=== PATIENT | male | born 1955 | race Caucasian/White ===

== ENCOUNTER → 2020-07-26 09:27 | Outpatient (CLI) | payer MEDICARE, OTHER, SELFPAY ==
--- NOTE | ~2020-07-26 | CT_ITS ---
EXAMINATION:CT lung screening DATE: 07/26/2020 09:47 INDICATION: Personal history of nicotine dependence. Current smoker with 30 pack year history. TECHNIQUE: Computed tomography (CT) of the chest was performed without intravenous contrast. Automate d exposure control and iterative reconstruction technique were employed. The dose-length product (DLP ) was 106.43 mGy-cm. 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 The lungs demonstrate minimal atelectasis. A c alcified left lung nodule is consistent with old granulomatous disease. No pleural effusion. There ar e changes of right hemithyroidectomy. There is a saber-sheath trachea. The heart size is normal. Ther e are coronary artery calcifications. No pericardial effusion. There is severe thoracic spondylosis. IMPRESSION: 1. Lung-RADS category 1: Negative. Continue annual screening with noncontrast low-dose chest CT in 12 months. Reviewed, dictated and finalized at location A. IMPRESSION: 1. Lung-RADS category 1: Negative. Continue annual screening with noncontrast l ow-dose chest CT in 12 months.
== END ==
PROVIDERS: PCP Family Medicine; Visit Provider Family Medicine
DX: Z87.891 Personal history of nicotine dependence (principal)
CPT/HCPCS: G0297

== ENCOUNTER 2021-02-26 19:37 | Emergency (ER) | payer MEDICARE, OTHER, SELFPAY ==
--- NOTE | 2021-02-26 19:39 | ED.MALEGU ---
HPI - Male Genitourinary General Stated complaint: Abdominal pain, Back pain Time Seen by Provider: 02/26/21 19:43 Source: patient and RN notes reviewed Related Data Home Medications Medication Instructions Recorded Confirmed aspirin 81 mg tablet,delayed 81 mg PO DAILY 10/02/19 07/17/20 release Allergies Allergy/AdvReac Type Severity Reaction Status Date / Time Penicillins Allergy Unknown Skin Verified 12/23/20 11:07 Reaction Review of Systems Review of Systems: Narrative: CONSTITUTIONAL: Denies fever, chills, or sweats. EYES: Denies visual changes, redness, or discharge. ENT: Denies rhinorrhea, congestion, sore throat, or otalgia. CARDIOVASCULAR: Denies chest pain, palpitations, or edema. RESPIRATORY: Denies cough or dyspnea. GASTROINTESTINAL: Denies abdominal pain, nausea, vomiting, or diarrhea. GENITOURINARY: Denies dysuria or hematuria. SKIN: Denies rash or itching. MUSCULOSKELETAL: Denies back pain, joint pain, or myalgia. NEUROLOGIC: Denies headache, numbness, or weakness. All other systems reviewed are negative, except as documented in HPI. PMFSH Surgical History Surgical History H/O hernia repair History of appendectomy History of hip replacement History of vasectomy Hx of tonsillectomy Family History Family History Father Family history of alcoholism Family history of Alzheimer's disease, Onset Age: 75 Family history of malignant neoplasm of urinary bladder Mother Family history of lung cancer Other Depression Social History Social History Smoking status: Current every day smoker (refuses to quit) Alcohol intake: current Comments At the time of my signature, I reviewed and agree with the nursing past medical, surgical, social, and family history. There is no relevant family history pertinent to the patient complaint. Exam Narrative: Exam Narrative: GENERAL: This is a well-nourished, well-developed patient, in no apparent distress. HEAD: normocephalic, atraumatic. EYES: PERRL. Sclera clear/white. Vision is grossly intact. EARS: External ears normal, auditory canals clear and without drainage, TMs normal without perforation. Hearing grossly intact. NOSE: External nose normal with no obvious nasal discharge, nares without redness, no rhinorrhea. THROAT: Mucous membranes moist, posterior pharynx clear. NECK: Neck supple, non-tender without lymphadenopathy, masses or thyromegaly. CARDIOVASCULAR: Regular rate and rhythm without murmurs, gallops, or rubs. RESPIRATORY: Clear to auscultation. Breath sounds equal bilaterally. No wheezes, rales, or rhonchi. GASTROINTESTINAL: Abdomen soft, non-tender, nondistended. Bowel sounds are active. No hepato-splenomegaly, or palpable masses. No guarding. SKIN: warm, intact with no suspicious lesions or rash, good texture and turgor. NEURO: awake, alert, and oriented to person, place and time. There were no obvious focal neurologic abnormalities. EXTREMITIES: No clubbing, cyanosis, or edema. No joint tenderness, effusion, or edema noted. No calf tenderness. Negative Homans sign bilaterally. BACK: Nontender without deformity or crepitance. No flank tenderness. MDM - Male Genitourinary MDM Narrative Medical decision making narrative: Reviewed lab results with the patient. He is aware that urine analysis Differential Diagnosis Differential diagnosis: Likely urinary tract infection, epididymitis and prostatitis Lab Data Attestation: I reviewed the patient's lab results. Critical Care Time Critical Care Time Critical Care Time: No Discharge Plan Discharge Prescriptions: No Action Fluzone Quad [id number] (PF) 60 mcg (15 mcg x 4)/0.5 mL syringe 0.5 ml IM ONCE Qty: 1 RF: 0 aspirin 81 mg tablet,delayed release (DR/EC) 81 mg PO DAILY RF: 0 lisinopril 10 mg tablet
[2021-02-26 19:45] VITALS: BP 138/73; PULSE 100; RESP 16; TEMP 37.3; O2SAT 98
--- NOTE | 2021-02-26 19:50 | ED.ABDPAIN ---
HPI - Abdominal Pain General Chief Complaint: Abdominal Pain Stated Complaint: Abdominal pain, Back pain Time Seen by Provider: 02/26/21 19:43 Source: patient and RN notes reviewed History of Present Illness HPI narrative: Patient is a 65-year-old male who presents the urgent care with complaints of upper abdominal pain wrapping around and through to the back. Patient states that it started last night and he woke up with a low-grade fever. Patient states that it improved this morning and he has been taking Maalox and Prilosec with mild improvement. Patient denies of any history of hiatal hernia, gastric reflux, or cardiac related history. Patient is currently denying of any chest pain or shortness of breath. No other acute complaints. Patient appears slightly anxious otherwise no acute distress noted. Denies of any nausea, vomiting, diarrhea. Patient aware of the plan of care. Some parts of this dictation were generated by voice recognition software and may contain typographical and/or grammatical inaccuracies. Related Data Home Medications Medication Instructions Recorded Confirmed aspirin 81 mg tablet,delayed 81 mg PO DAILY 10/02/19 07/17/20 release Allergies Allergy/AdvReac Type Severity Reaction Status Date / Time Penicillins Allergy Unknown Skin Verified 02/26/21 19:53 Reaction Review of Systems Review of Systems: Narrative: CONSTITUTIONAL: Reports of low-grade fever EYES: Denies visual changes, redness, or discharge. ENT: Denies rhinorrhea, congestion, sore throat, or otalgia. CARDIOVASCULAR: Denies chest pain, palpitations, or edema. RESPIRATORY: Denies cough or dyspnea. GASTROINTESTINAL: Reports of upper abdominal pain without nausea, vomiting or diarrhea GENITOURINARY: Denies dysuria or hematuria. SKIN: Denies rash or itching. MUSCULOSKELETAL: Reports of upper back pain NEUROLOGIC: Denies headache, numbness, or weakness. All other systems reviewed are negative, except as documented in HPI. [facility] Surgical History Surgical History H/O hernia repair History of appendectomy History of hip replacement History of vasectomy Hx of tonsillectomy Family History Family History Father Family history of alcoholism Family history of Alzheimer's disease, Onset Age: 75 Family history of malignant neoplasm of urinary bladder Mother Family history of lung cancer Other Depression Social History Social History Smoking status: Current every day smoker (refuses to quit) Alcohol intake: current Comments At the time of my signature, I reviewed and agree with the nursing past medical, surgical, social, and family history. There is no relevant family history pertinent to the patient complaint. Exam Narrative: Exam Narrative: GENERAL: This is a well-nourished, well-developed patient, in no apparent distress. HEAD: normocephalic, atraumatic. EYES: PERRL. Sclera clear/white. Vision is grossly intact. EARS: External ears normal NOSE: External nose normal with no obvious nasal discharge, nares without redness, no rhinorrhea. THROAT: Mucous membranes moist NECK: Neck supple CARDIOVASCULAR: Regular rate and rhythm without murmurs, gallops, or rubs. RESPIRATORY: Clear to auscultation. Breath sounds equal bilaterally. No wheezes, rales, or rhonchi. GASTROINTESTINAL: Abdomen soft, mild to moderate diffuse upper abdominal tenderness/substernal/epigastric, nondistended. Bowel sounds are hyper active. SKIN: warm, intact with no suspicious lesions or rash, good texture and turgor. NEURO: awake, alert, and oriented to person, place and time. There were no obvious focal neurologic abnormalities. EXTREMITIES: No clubbing, cyanosis, or edema. Course Vital Signs Vital signs: Vital Signs Temperature 99.1 F 02/26/21 19:45 Pulse Rate 10
--- NOTE | 2021-02-26 20:23 | ECG_ITS ---
Measurements Intervals [place] Rate: 94 P: 51 CT: 134 QRS: -37 QRSD: 154 T: 16 QT: 370 QTc: 465 Interpretive Statements SINUS RHYTHM POSSIBLE LEFT ATRIAL ENLARGEMENT LEFT AXIS DEVIATION RIGHT BUNDLE BRANCH BLOCK BASELINE ARTIFACT- I, II, III, AVF ABNORMAL ECG Electronically Signed On 02-27-2021 8:24:52 CDT by Des Worthington D.O.
== END 2021-02-26 20:05 | disposition short-term general hospital (02) ==
PROVIDERS: Emergency Provider Nurse Practitioner Family; PCP Family Medicine
DX: R10.10 Upper abdominal pain, unspecified (principal); F17.200 Nicotine dependence, unspecified, uncomplicated; Z96.649 Presence of unspecified artificial hip joint; Z98.52 Vasectomy status
CPT/HCPCS: 93005; 99213; G0463

== ENCOUNTER 2022-06-30 22:27 | Emergency (ER) | payer MEDICARE, OTHER, SELFPAY ==
--- NOTE | ~2022-06-30 | CT_ITS ---
EXAMINATION: CT abdomen pelvis w con DATE: 07/01/2022 00:57 INDICATION: Epigastric pain TECHNIQUE: Computed tomography (CT) of the abdomen and pelvis was performed with 100 mL Omnipaque-350 intravenous contrast. Automated exposure control and iterative reconstruction technique were employe d. The dose-length product was 499.56 mGy-cm. COMPARISON: None FINDINGS: Elevation of the right hemidiaphragm. Mild bibasilar atelectasis. Heart size is normal. Atherosclerot ic coronary artery calcific location. No pericardial or pleural effusion. Several gallstones within t he normal gallbladder. Liver, spleen, pancreas and bilateral adrenal glands are normal. Bilateral cherry al cysts the largest measuring 2.5 cm in the right kidney. Bilateral nonobstructing nephrolithiasis w ith in 3 mm and 4 mm stones in the right kidney and 3 mm left renal stone. Air-fluid level within a 3 .2 x 2.3 cm duodenal diverticulum located along the posterior margin of head of pancreas and arising from the second portion of the duodenum. There is moderate colonic diverticulosis with a sigmoid pred ominance. There is no adjacent inflammatory change to suggest diverticulitis. A couple small fat-con taining midline ventral hernias. No bowel obstruction. The appendix is not visualized. No pericecal i nflammatory change to suggest acute appendicitis. Bladder is normal. Prostatomegaly. Streak artifact in the lower pelvis resulting from a left total hip arthroplasty. No free intraperitoneal gas or flui d. No pathologically enlarged abdominal or pelvic lymphadenopathy. There is calcified atherosclerosis of the aorta and many of the other arteries. Mild lumbar and severe lower thoracic spondylosis. IMPRESSION: 1. No acute intra-abdominal/pelvic process. 2. Cholelithiasis. 3. Nonobstructing bilateral nephrolithiasis. 4. Moderate diverticulosis. 5. Couple small fat-containing ventral hernias. Reviewed, dictated and finalized at location A.
--- NOTE | ~2022-06-30 | XR_ITS ---
EXAMINATION: XR chest 2V DATE: 06/30/2022 23:13 INDICATION: Upper abdominal pain and dizziness TECHNIQUE: frontal and lateral views of the chest were obtained. COMPARISON: CT abdomen and pelvis dated 07/01/2022 FINDINGS: Mild bibasilar atelectasis. No other airspace opacities, pulmonary edema, pleural effusion or pneumot horax. The cardiomediastinal silhouette is normal. Surgical clips base of the neck suggesting prior t hyroidectomy. Mild S-shaped curvature of the thoracic spine with severe spondylosis. IMPRESSION: 1. Mild bibasilar atelectasis. Reviewed, dictated and finalized at location A.
[2022-06-30 22:36] VITALS: BP 166/91; PULSE 71; RESP 18; TEMP 36.6; O2SAT 96
--- NOTE | 2022-06-30 22:41 | ECG_ITS ---
Measurements Intervals [place] Rate: 71 P: 54 [place]: 146 QRS: -25 QRSD: 165 T: 33 QT: 411 QTc: 448 Interpretive Statements SINUS RHYTHM WITH SINUS ARRHYTHMIA POSSIBLE LEFT ATRIAL ENLARGEMENT [-0.1mV P WAVE IN V1/V2] BORDERLINE LEFT AXIS DEVIATION RIGHT BUNDLE BRANCH BLOCK ABNORMAL ECG COMPARED TO ECG 02/26/2021 19:54:46 SINUS ARRHYTHMIA NOW PRESENT Electronically Signed On 07-01-2022 14:59:36 CDT by Rohan Lyon M.D.
[2022-06-30 22:50] LABS: Basophils Absolute Auto 0.1 K/mm3 (0.0-0.1); Basophils Percent Auto 0.5 % (0.2-1.2); Eosinophils Absolute Auto 0.3 K/mm3 (0-0.3); Eosinophils Percent Auto 2.4 % (0-4.4); Hematocrit 48.5 % (42.0-52.0); Hemoglobin 16.2 g/dL (14.0-18.0); Immature Granulocyte Absolute 0.04 K/mm3 (0.00-0.031); Immature Granulocyte Percent A 0.4 % (0-0.5); Lymphocytes Absolute Auto 2.72 K/mm3 (0.9-3.2); Lymphocytes Percent Auto 24.1 % (18.3-44.2); Mean Corpuscular HGB Conc 33.4 g/dl (32-36); Mean Corpuscular Hemoglobin 30.5 pg (26-34); Mean Corpuscular Volume 91.3 fl (80-100); Mean Platelet Volume 9.1 fl (7.4-10.4); Monocytes Absolute Auto 0.8 K/mm3 (0.1-0.6); Monocytes Percent Auto 7.2 % (2.6-8.5); Neutrophils Absolute Auto 7.4 K/mm3 (1.3-6.7); Neutrophils Percent Auto 65.4 % (45.5-73.1); Platelet Count Result 329 k/mm3 (150-375); Red Blood Count 5.31 M/mm3 (4.6-6.20); Red Cell Distribution Width 14.3 % (11.5-14.5); White Blood Count 11.3 K/mm3 (4.5-10.0)
[2022-06-30 23:00] LABS: Alanine Aminotransferase 24 U/L (6-50); Albumin Level 4.3 g/dL (3.5-5.1); Alkaline Phosphatase 96 U/L (38-126); Anion Gap 8 mmol/L (8-16); Aspartate Amino Transferase 24 U/L (17-59); Bilirubin,Total 0.3 mg/dL (0.2-1.3); Blood Urea Nitrogen 21 mg/dL (9-20); Calcium 8.8 mg/dL (8.4-10.2); Carbon Dioxide 28 mmol/L (22-30); Chloride 104 mmol/L (98-107); Estimated CRCL calculation 68 ml/min; Estimated Glomerular Filt Rate > 60; Glucose 141 mg/dL (65-110); Lipase 120 U/L (23-300); Potassium 3.8 mmol/L (3.4-5.0); Sodium 140 mmol/L (137-145)
[2022-06-30 23:01] LABS: Prothrombin Time 12.9 Seconds (11.1-14.7)
[2022-06-30 23:02] LABS: Partial Thromboplastin Time 27.3 SECONDS (22.3-36.8)
[2022-06-30 23:11] LABS: Troponin I < 0.012 ng/mL (0.000-0.034)
[2022-07-01 00:02] VITALS: BP 178/98; PULSE 68; RESP 28; O2SAT 96
--- NOTE | 2022-07-01 00:05 | ED.ABDPAIN ---
HPI - Abdominal Pain General Chief Complaint: Abdominal Pain <CASSIA Thomason Last Filed: 07/01/22 03:12> Stated Complaint: chest pain <CASSIA Thomason Last Filed: 07/01/22 03:12> Time Seen by Provider: 06/30/22 23:43 <CASSIA Thomason Last Filed: 07/01/22 03:12> Source: patient <CASSIA Thomason Last Filed: 07/01/22 03:12> Mode of arrival: ambulatory <CASSIA Thomason Last Filed: 07/01/22 03:12> Limitations: no limitations <CASSIA Thomason Last Filed: 07/01/22 03:12> History of Present Illness HPI narrative: This is a 66 year old male that presents to the ER for epigastric pain present since this afternoon. The pain is burning and cramping in nature. Constant in nature. Reports the pain started laying down for a nap. Pain continued to get worse as the day progressed. Reports some associated nausea. Denies fever, cough, shortness of breath or vomiting. <CASSIA Thomason Last Filed: 07/01/22 03:12> Related Data Home Medications: Home Medications Medication Instructions Recorded Confirmed aspirin 81 mg tablet,delayed 81 mg PO DAILY 10/02/19 06/18/22 release <CASSIA Thomason Last Filed: 07/01/22 03:12> Allergies/Adverse Reactions: Allergies Allergy/AdvReac Type Severity Reaction Status Date / Time Penicillins Allergy Unknown Skin Verified 06/18/22 08:38 Reaction <CASSIA Thomason Last Filed: 07/01/22 03:12> Review of Systems Review of Systems: CONSTITUTIONAL: Denies fever CARDIOVASCULAR: Reports chest pain. Denies edema. RESPIRATORY: Denies cough or dyspnea. GASTROINTESTINAL: Reports abdominal pain, nausea. Denies vomiting <CASSIA Thomason Last Filed: 07/01/22 03:12> All systems reviewed & are unremarkable except as noted in HPI and below <CASSIA Thomason Last Filed: 07/01/22 03:12> [facility] Past Medical History Medical History: Medical History (Updated 07/01/22 @ 03:11 by Radha Carrasco PA-C) Benign essential HTN Calculus of kidney Labile hypertension Mixed hyperlipidemia Rhinitis <Radha Carrasco PA-C - Last Filed: 07/01/22 03:12> Surgical History Surgical History: Surgical History H/O hernia repair History of appendectomy History of hip replacement History of vasectomy Hx of tonsillectomy <Radha Carrasco PA-C - Last Filed: 07/01/22 03:12> Family History Family History: Family History Father Family history of alcoholism Family history of Alzheimer's disease, Onset Age: 75 Family history of malignant neoplasm of urinary bladder Mother Family history of lung cancer Other Depression <Radha Carrasco PA-C - Last Filed: 07/01/22 03:12> Social History Social History: Social History (Updated 07/01/22 @ 00:07 by Radha Carrasco PA-C) Social History: Caffeine-coffee/soda Years smoked: 49 Smoking status: Current every day smoker Alcohol intake: current Drinks per week: 5 Alcohol use details: beer Substance use: never <Radha Carrasco PA-C - Last Filed: 07/01/22 03:12> Exam Narrative: GENERAL: Well-appearing, well-nourished, and in no acute distress. HEAD: Normocephalic, atraumatic. EYES: EOMI. CHEST: Clear to auscultation. No respiratory distress. No wheezes rales or rhonchi HEART: Regular rate and rhythm. No murmur heard. Normal peripheral pulses. ABDOMEN: Soft, nondistended, normal active bowel sounds. Tender to palpation in the epigastrium and right upper quadrant, without guarding. No CVA tenderness EXTREMITIES: Normal range of motion. No edema. SKIN: Warm, dry, no rash. NEURO: No focal deficits. Alert and oriented x3. PSYCH: Normal mood and affect <Radha Carrasco PA-C - Last Filed: 07/01/22 03:12> Course PILE TRIMMER/PA Physician Supervision For this patient encounter, I reviewed t
[2022-07-01] MEDS: MORPHINE SULFATE (*CRX) 4 MG/ML INJ IV PUSH (00:17)
[2022-07-01] MEDS: PANTOPRAZOLE SODIUM IV 40 MG VIAL IV PUSH (00:17)
[2022-07-01] MEDS: ASPIRIN 81 MG CHEWABLE TABLET 324 MG PO (00:17)
[2022-07-01] MEDS: ONDANSETRON INJ 4 MG/2 ML VIAL IV PUSH (00:17)
[2022-07-01] MEDS: SODIUM CHLORIDE 0.9% IV 500 ML 999 ML IV CONT (00:19)
[2022-07-01 00:32] VITALS: BP 165/84; PULSE 71; RESP 23; O2SAT 94
[2022-07-01 01:57] VITALS: PULSE 76; RESP 24; O2SAT 93
[2022-07-01 02:00] VITALS: PULSE 77; RESP 28; O2SAT 92
[2022-07-01 02:35] LABS: Troponin I < 0.012 ng/mL (0.000-0.034)
== END 2022-07-01 03:43 | disposition home or self-care (01) ==
PROVIDERS: Emergency Provider Emergency Medicine; PCP Emergency Medicine
DX: K80.20 Calculus of gallbladder without cholecystitis without obstruction (principal); I10 Essential (primary) hypertension; E78.2 Mixed hyperlipidemia; Z87.442 Personal history of urinary calculi; Z96.649 Presence of unspecified artificial hip joint; F17.200 Nicotine dependence, unspecified, uncomplicated; I45.10 Unspecified right bundle-branch block; R94.31 Abnormal electrocardiogram [ECG] [EKG]; N20.0 Calculus of kidney; K57.90 Diverticulosis of intestine, part unspecified, without perforation or abscess without bleeding; K43.9 Ventral hernia without obstruction or gangrene
CPT/HCPCS: 36415; 71046; 74177; 80053; 83690; 84484; 85025; 85610; 85730; 93005; 96365; 96366; 96375; 99284; A9270; C9113; J0131; J2270; J2405; J7040; Q9967

== ENCOUNTER 2022-07-02 05:55 | Inpatient (IN) | payer MEDICARE, OTHER, SELFPAY ==
[2022-07-02] VITALS (18 sets, daily range): BP systolic 100–154; BP diastolic 59–106; PULSE 91–149; RESP 16–41; TEMP 36.5–38.3; O2SAT 89–97
--- NOTE | ~2022-07-02 | US_ITS ---
EXAMINATION: US abdomen limited DATE: 07/02/2022 08:04 INDICATION: Right upper quadrant abdominal pain. TECHNIQUE: Multiple grayscale and Doppler ultrasound images of the abdomen were obtained. COMPARISON: CT abdomen and pelvis 07/01/2022 FINDINGS: The visualized portions of the head and body of the pancreas are normal. The liver is poncho l without focal lesion. There is normal flow in main portal vein. The gallbladder is normal in size a nd contains gallstones. Gallbladder wall thickening is noted. There is no sonographic Fisher sign. Th e common duct is not visualized, but was normal in caliber on the recent CT. IMPRESSION: 1. Cholelithiasis. Gallbladder wall thickening may be seen with chronic cholecystitis, chronic liver disease, or interstitial edema. Reviewed, dictated and finalized at location B. IMPRESSION: 1. Cholelithiasis. Gallbladder wall thickening may be seen with chronic cholecy stitis, chronic liver disease, or interstitial edema.
--- NOTE | ~2022-07-02 | XR_ITS ---
EXAMINATION: 07/03/2022 16:45 DATE: 07/03/2022 16:49 CDT INDICATION: Cholecystectomy with intraoperative cholangiogram TECHNIQUE: Intraoperative cholangiogram with a single contrast run(s) provided for review. 34 seconds of fluoroscopy. 163 fluoroscopic images. FINDINGS: There is cannulation and contrast administration into the cystic duct remnant. There is no discrete filling defect in the common bile duct to suggest common bile duct stone. Contrast flows fr eely into the duodenum. Extravasation of contrast is noted. IMPRESSION: 1. Patent cystic duct remnant and common bile duct, without common bile duct stone. Reviewed, dictated and finalized at location A. IMPRESSION: 1. Patent cystic duct remnant and common bile duct, without common bile duct s tone.
--- NOTE | 2022-07-02 07:00 | PC.NURSE ---
Report given to SWAPNA Loera.
--- NOTE | 2022-07-02 07:02 | ECG_ITS ---
Measurements Intervals [place] Rate: 147 P: 62 CT: 132 QRS: -39 QRSD: 149 T: 59 QT: 278 QTc: 435 Interpretive Statements SINUS TACHYCARDIA LEFT AXIS DEVIATION SIGNIFICANT BASELINE ARTIFACT RIGHT BUNDLE BRANCH BLOCK [120+ ms QRS DURATION, UPRIGHT V1, 40+ ms S IN I/aVL/V4/V5/V6] MARKED ST DEPRESSION, CONSIDER SUBENDOCARDIAL INJURY [0.2+ mV ST DEPRESSION] WARNING: DATA QUALITY MAY AFFECT INTERPRETATION COMPARED TO ECG 06/30/2022 22:30:52 NO SIGNIFICANT CHANGES Electronically Signed On 07-02-2022 17:20:04 CDT by Manuel Campbell M.D.
[2022-07-02 07:14] LABS: Basophils Percent Auto 0.3 % (0.2-1.2); Hematocrit 46.6 % (42.0-52.0); Hemoglobin 15.8 g/dL (14.0-18.0); Immature Granulocyte Absolute 0.08 K/mm3 (0.00-0.031); Immature Granulocyte Percent A 0.7 % (0-0.5); Lymphocytes Absolute Auto 0.25 K/mm3 (0.9-3.2); Lymphocytes Percent Auto 2.2 % (18.3-44.2); Mean Corpuscular HGB Conc 33.9 g/dl (32-36); Mean Corpuscular Hemoglobin 30.7 pg (26-34); Mean Corpuscular Volume 90.5 fl (80-100); Mean Platelet Volume 9.2 fl (7.4-10.4); Monocytes Absolute Auto 0.1 K/mm3 (0.1-0.6); Monocytes Percent Auto 0.6 % (2.6-8.5); Neutrophils Absolute Auto 10.9 K/mm3 (1.3-6.7); Neutrophils Percent Auto 96.2 % (45.5-73.1); Platelet Count Result 235 k/mm3 (150-375); Red Blood Count 5.15 M/mm3 (4.6-6.20); Red Cell Distribution Width 14.3 % (11.5-14.5); White Blood Count 11.3 K/mm3 (4.5-10.0)
--- NOTE | 2022-07-02 07:14 | ED.GENADULT ---
HPI - General Adult General Chief complaint: Abdominal Pain Stated complaint: ruq abd pain Time Seen by Provider: 07/02/22 07:06 History of Present Illness HPI narrative: 66-year-old male presents for evaluation of shaking, subjective fever and upper abdominal pain that has been worsening since he was seen in the ER yesterday. Patient was diagnosed with biliary colic yesterday and given follow-up for cholecystectomy at a later date. Patient's pain worsened throughout the night and he began to have shaking and rigors. Related Data Home Medications Medication Instructions Recorded Confirmed aspirin 81 mg tablet,delayed 81 mg PO DAILY 10/02/19 06/18/22 release Allergies Allergy/AdvReac Type Severity Reaction Status Date / Time Penicillins Allergy Unknown Skin Verified 07/02/22 06:56 Reaction Review of Systems Review of Systems: CONSTITUTIONAL: Denies fever, chills, or sweats. EYES: Denies visual changes, redness, or discharge. ENT: Denies rhinorrhea, congestion, sore throat, or otalgia. CARDIOVASCULAR: Denies chest pain, palpitations, or edema. RESPIRATORY: Denies cough or dyspnea. GASTROINTESTINAL: Denies abdominal pain, nausea, vomiting, or diarrhea. GENITOURINARY: Denies dysuria or hematuria. SKIN: Denies rash or itching. MUSCULOSKELETAL: Denies back pain, joint pain, or myalgia. NEUROLOGIC: Denies headache, numbness, or weakness. PSYCHIATRIC: Denies anxiety or depression. [facility] Past Medical History Medical History (Updated 07/02/22 @ 00:00 by Martha Stephens) Benign essential HTN Calculus of kidney Labile hypertension Mixed hyperlipidemia Rhinitis Surgical History Surgical History H/O hernia repair History of appendectomy History of hip replacement History of vasectomy Hx of tonsillectomy Family History Family History Father Family history of alcoholism Family history of Alzheimer's disease, Onset Age: 75 Family history of malignant neoplasm of urinary bladder Mother Family history of lung cancer Other Depression Social History Social History (Updated 07/01/22 @ 00:07 by Radha Carrasco PA-C) Social History: Caffeine-coffee/soda Years smoked: 49 Smoking status: Current every day smoker Alcohol intake: current Drinks per week: 5 Alcohol use details: beer Substance use: never Exam Narrative: GENERAL: Rigors, well-nourished. HEAD: Normocephalic, atraumatic. EYES: PERRLA and EOMI. ENT: Nares clear, no rhinorrhea or epistaxis. Mucous membranes moist. NECK: Supple. CHEST: Clear to auscultation. No respiratory distress. HEART: Regular rate and rhythm. No murmur heard. Normal peripheral pulses. ABDOMEN: Soft, upper abdominal tenderness, nondistended, normal active bowel sounds. EXTREMITIES: Normal range of motion. No edema. SKIN: Warm, dry, no rash. NEURO: No focal deficits. Alert and oriented x3. PSYCH: Normal mood and affect. Course Vital Signs Vital signs: Vital Signs Temperature 97.7 F 07/02/22 05:57 Pulse Rate 125 H 07/02/22 05:57 Respiratory Rate 18 07/02/22 05:57 Blood Pressure 131/62 07/02/22 05:57 Pulse Oximetry 94 07/02/22 05:57 Oxygen Delivery Room Air 07/02/22 05:57 Temperature 100.9 F H 07/02/22 10:15 Pulse Rate 112 H 07/02/22 11:22 Respiratory Rate 30 H 07/02/22 11:22 Blood Pressure 111/63 07/02/22 11:22 Pulse Oximetry 95 07/02/22 11:26 Oxygen Delivery Nasal Cannula 07/02/22 11:26 Oxygen Flow Rate 2 07/02/22 11:26 Medical Decision Making [facility] Narrative Medical decision making narrative: DDx includes AAA, perforation, PUD, dyspepsia, SBO, LBO, volvulus, diverticulitis, colitis, IBD, pancreatitis, ascending cholangitis, cholecystitis. Patient's young age, stable vital signs and lack of smoking history make AAA unlikely. No evidence of constipation/ obstipation/ rebound/ rigidity o
[2022-07-02 07:16] LABS: Appearance Urine Clear (Clear); Bilirubin Urine 1+ (Negative); Blood Urine 2+ (Negative); Glucose Urine UA Negative (Negative); Ketones Urine 2+ mg/dL (Negative); Leukocyte Esterase Ur Negative LEU/UL (Negative); Nitrate Urine Negative (Negative); Protein Urine 2+ mg/dL (Negative); Urobilinogen Urine 0.2 mg/dL (<2.0)
[2022-07-02 07:19] LABS: Alanine Aminotransferase 25 U/L (6-50); Albumin Level 4.1 g/dL (3.5-5.1); Alkaline Phosphatase 96 U/L (38-126); Anion Gap 8 mmol/L (8-16); Aspartate Amino Transferase 36 U/L (17-59); Bacteria Urine Trace /hpf; Bilirubin,Total 1.1 mg/dL (0.2-1.3); Blood Urea Nitrogen 18 mg/dL (9-20); Calcium 8.9 mg/dL (8.4-10.2); Carbon Dioxide 25 mmol/L (22-30); Chloride 103 mmol/L (98-107); Estimated CRCL calculation 61 ml/min; Estimated Glomerular Filt Rate > 60; Glucose 131 mg/dL (65-110); Lipase 36 U/L (23-300); Mucus Urine Rare /lpf; Potassium 2.9 mmol/L (3.4-5.0); RBC Urine >75 /hpf (0-2); Sodium 136 mmol/L (137-145); Squamous Epithelial Cell Urine Rare /hpf (Few)
[2022-07-02] MEDS: MORPHINE SULFATE (*CRX) 4 MG/ML INJ IV PUSH (07:19)
[2022-07-02] MEDS: LACTATED RINGERS 1,000 ML 500 ML IV CONT (07:19)
[2022-07-02 07:29] LABS: Add Urine Microscopic? YES; Color Urine Dark Yellow (Yellow)
--- NOTE | 2022-07-02 09:30 | PC.NURSE ---
pNichelle tomlinson, NAD. Aware primary RN and provider with critical pt.
[2022-07-02] MEDS: metroNIDAZOLE 500 MG/ISO 100ML 500 MG/100 ML BAG 100 MG IVPB ×2 (10:13→18:26)
--- NOTE | 2022-07-02 10:47 | ECG_ITS ---
Measurements Intervals [place] Rate: 111 P: [place]: 0 QRS: -34 QRSD: 161 T: 60 QT: 344 QTc: 469 Interpretive Statements SINUS TACHYCARDIA MARKED LEFT AXIS DEVIATION [QRS AXIS < -30] RIGHT BUNDLE BRANCH BLOCK [120+ ms QRS DURATION, UPRIGHT V1, 40+ ms S IN I/aVL/V4/V5/V6] COMPARED TO ECG 07/02/2022 07:09:32 HEART RATE HAS DECREASED Electronically Signed On 07-02-2022 17:29:29 CDT by Manuel Campbell M.D.
[2022-07-02] MEDS: CIPROFLOXACIN 400 MG/D5W 200ML 200 ML 200 MG IVPB ×2 (11:19→22:42)
[2022-07-02] MEDS: POTASSIUM CHLORIDE 20 MEQ PACKET (FOR LIQUID) 40 MEQ PO (11:20)
[2022-07-02] MEDS: POTASSIUM CHLORIDE INJ 40 MEQ in SODIUM CHLORIDE 0.9% IV 500 ML 130 MEQ IVPB (11:20)
[2022-07-02 12:20] LABS: SARS-CoV-2 RNA PCR Negative
--- NOTE | 2022-07-02 14:27 | PM.CNGS ---
Assessment and Plan Assessment and plan (1) Cholelithiasis with cholecystitis: Code(s): K80.10 - Calculus of gallbladder with chronic cholecystitis without obstruction Status: Acute Assessment and Plan: Patient presented to the ER this morning for the second time in the past 2 days for epigastric abdominal pain. Initial CT scan abdomen/pelvis from 2 nights ago showed cholelithiasis without any other evidence of acute cholecystitis, and without any other acute intraabdominal process noted. Mild leukocytosis but normal LFTs and normal lipase. He was afebrile at that time. When returning to the ER, his labs are the same, but his RUQ US showed the gallstones with now some gallbladder wall thickening. Clinically, his symptoms and exam correlate with gallbladder disease. He also has had similar pain twice in the past few years that could suggest chronic cholecystitis as well. He continues to have abdominal pain on my exam, although slightly improved with the Morphine. I discussed treatment options with the patient including proceeding with a cholecystectomy versus lifestyle modifications to help prevent future attacks. We also discussed the details of a laparoscopic cholecystectomy, risks, benefits, alternatives, and expected recovery. All questions were answered. Due to his tachycardia and EKG changes, we would recommend that he be evaluated by the hospitalist for medical clearance prior to deciding on surgery. For now, continue IV ciprofloxacin and metronidazole, IV fluids, and analgesics. Will keep the patient NPO for now. Dr. Kelly will be evaluating the patient separately this afternoon. (2) Tachycardia: Code(s): R00.0 - Tachycardia, unspecified Status: Acute Assessment and Plan: Tachycardic in the ER and also febrile. EKG showed sinus tachycardia, possible atrial flutter. He has no known history of any arrhythmia. HR has improved after being treated with IV Tylenol. He is asymptomatic. Will await Hospitalist evaluate for medical clearance for surgery. (3) Fever: Code(s): R50.9 - Fever, unspecified Status: Acute Assessment and Plan: Fever in the ER with tachycardia. Resolved with IV acetaminophen. Could be related to acute cholecystitis. No other infectious sources. COVID negative. He has no other complaints besides the epigastric abdominal pain. Continue IV ciprofloxacin and metronidazole. See plan above. (4) Benign microscopic hematuria: Code(s): R31.1 - Benign essential microscopic hematuria Status: Chronic Assessment and Plan: UA with >75 RBC from the ER. Patient has no urinary symptoms. He has seen Urology in 2006 with work-up including negative cystoscopy. (5) Nicotine dependence, unspecified, uncomplicated: Code(s): F17.200 - Nicotine dependence, unspecified, uncomplicated Status: Acute Assessment and Plan: Encouraged smoking cessation. (6) Benign essential HTN: Code(s): I10 - Essential (primary) hypertension Status: Chronic (7) Mixed hyperlipidemia: Code(s): E78.2 - Mixed hyperlipidemia Status: Chronic Plan I have discussed the patient's case and plan of care with Dr. Kelly. Thank you for allowing us to see the patient in consultation and we will continue to follow along with you. History of Present Illness Consult details Consult date: 07/02/22 Reason for consult: gallstones (Possible acute cholecystitis) Requesting physician: Fletcher Lowe D.C., Narrative: This is a 66-year-old man with a history of hypertension, hyperlipidemia, and kidney stones. He presented to the ER initially 2 nights ago due to epigastric abdominal pain. On Wednesday, he had eaten pizza for lunch and reports having indigestion shortly after. He then ate fried chicken for dinner, and shortly after developed epigastric abdominal pain that was severe. The pain radiated into his back. No nausea or vomiting. He then came int
--- NOTE | 2022-07-02 14:34 | PM.IMHP ---
H&P: HPI History of Present Illness Date/Time: 07/02/22 14:34 Chief Complaint: Abdominal pain Narrative: This is a 66-year-old male patient who came in to be evaluated for shaking and subjective fever. He has also been complaining of some right upper quadrant it was 1 versus since yesterday the doses ability as of yesterday. The patient was to follow-up for a cholecystectomy at a later date. The patient's pain worsened throughout the night he began have she rigors. The patient has a positive Fisher sign his initial EKG was read as sinus tachycardia possible atrial flutter her rate 147. Marked ST depression. Repeat EKG shows sinus rhythm with sinus arrhythmia possible left atrial enlargement. Borderline left axis deviation. Right bundle branch block. Abnormal EKG. White count is 11.3. Sodium is 136 potassium 2.9. Patient was given oral and IV supplemental potassium. Urine had 2+ protein, 2+ ketones 2+ blood 1+ bilirubin RBCs greater than 75. COVID is negative. The patient was started on lactated Ringer's, given morphine, Cipro, Flagyl, potassium, and Tylenol in the emergency room. When I saw the patient he stated he was feeling much better. The patient is being admitted to observation status on the date of service of 07/02/2022. Review of Systems Review of Systems: See HPI All systems reviewed & are unremarkable except as noted in HPI and below Constitutional: Constitutional: Reports as per HPI and Reports no additional constitutional complaints Eyes: Eyes: Reports as per HPI and Reports no additional eye complaints ENT: Reports system reviewed and no additional complaints, except as documented and Reports Normal hearing present Cardiovascular: Cardiovascular: Reports no additional cardiovascular complaints Respiratory: Respiratory: Reports no additional respiratory complaints and Reports no additional respiratory complaints Gastrointestinal: Gastrointestinal: Reports as per HPI and Reports no additional gastrointestinal complaints Musculoskeletal: Musculoskeletal: Reports no additional musculoskeletal complaints Integumentary/Breasts: Skin/Breast: Reports system reviewed and no additional complaints, except as docu and Reports as per HPI Neurologic: Reports system reviewed and no additional complaints, except as documented, Reports as per HPI and Reports Normal hearing present Psychiatric: Psychiatric: Reports no additional psychiatric complaints and Reports as per HPI Endocrine: Endocrine: Reports no additional endocrine complaints Hematologic/Lymphatic: Hematologic/Lymphatic: Reports no additional hematologic/lymphatic complaints Allergic/Immunologic: Allergic/Immunologic: Reports no additional allergic/immunologic complaints [facility] Past Medical History Medical History Benign essential HTN Benign microscopic hematuria Had workup through Urology with negative cystoscopy, findings of BPH Calculus of kidney Passed kidney stone Mixed hyperlipidemia Rhinitis Surgical History Surgical History H/O hernia repair Left inguinal hernia repair as a child History of appendectomy 1987 - Exploratory laparotomy with appendectomy for rupture appendix History of cystoscopy 2005 for microscopic hematuria - mild BPH but no other significant pathology History of hip replacement History of lobectomy of thyroid 08/2018 - thyroid lobectomy with pathology showing nodularal hyperplasia thyroid History of vasectomy Hx of tonsillectomy Family History Family History (Updated 07/02/22 @ 15:22 by Allison Burris NP) Father Family history of Alzheimer's disease, Onset Age: 75 Family history of malignant neoplasm of urinary bladder Mother Family history of lung cancer Other Depression Social History Social History (Updated 07/02/22 @ 15:24 by Allison Burris NP) Social History: The patient li
--- NOTE | 2022-07-02 15:37 | PM.CNCAR ---
Assessment and Plan Assessment and plan (1) Preoperative cardiovascular examination: Code(s): Z01.810 - Encounter for preprocedural cardiovascular examination Status: Acute Assessment and Plan: No history of any cardiac problems and no symptoms at present to suggest any acute cardiac concerns. He has a chronic RBBB that per the patient's report has been present for about 30 years. Atrial tachycardia vs sinus tachycardia on EKG earlier today. He is in sinus rhythm on telemetry currently. No ectopy or ventricular arrhythmias. Echo has been ordered. Will review and leave any further recommendations based on that study. As of now, I would consider him low risk for cholecystectomy from a cardiac standpoint. History of Present Illness History of Present Illness Consult date/time: 07/02/22 15:37 Reason For Visit: ruq abd pain Narrative: Mr. Sim is a 66-year-old male with a past medical history of hypertension, hyperlipidemia. He comes to the hospital with a chief complaint of abdominal pain. He was recently seen in the hospital earlier this week with the same complaint and was diagnosed with cholelithiasis with no other evidence of acute cholecystitis. Now, his right upper quadrant ultrasound shows gallstones and gallbladder wall thickening. He has been seen by General surgery who has recommended cholecystectomy. We have been asked by the hospitalist service to see him preoperatively for cardiac risk assessment because of an abnormal EKG. His initial EKG from the emergency department has significant baseline artifact but upon my review looks like possible atrial flutter versus sinus tachycardia with right bundle-branch block, left axis deviation. Repeat EKG shows atrial flutter with right bundle branch block. EKG from previous hospitalization shows right bundle branch block as well. Patient states that right bundle branch block has been a chronic finding on his EKG for about 30 years. He denies having any chest pain, shortness of breath, palpitations, orthopnea, paroxysmal nocturnal dyspnea, edema, syncope, or presyncope. Review of Systems Constitutional: Constitutional: Denies chills, Reports fever(s), Denies headache(s) and Denies malaise Eyes: Eyes: Denies change in vision ENT: Reports Normal hearing present, Denies dizziness, Denies headache(s) and Denies hearing loss Cardiovascular: Cardiovascular: Denies chest pain, Denies chest pain at rest, Denies chest pain with activity, Denies syncope, Denies leg edema, Denies palpitations, Denies dyspnea and Denies dyspnea on exertion Respiratory: Respiratory: Denies cough, Denies dyspnea, Denies dyspnea on exertion and Denies wheezing Gastrointestinal: Gastrointestinal: Reports as per HPI, Reports abdominal pain, Denies constipation and Denies diarrhea Genitourinary: Genitourinary: Denies hematuria and Denies dysuria Musculoskeletal: Musculoskeletal: Denies myalgias, Denies arthralgias and Denies muscle cramps Integumentary/Breasts: Skin/Breast: Denies wounds Neurologic: Reports Normal hearing present, Denies confusion, Denies dizziness, Denies syncope and Denies headache(s) Psychiatric: Psychiatric: Denies anxiety, Denies confusion and Denies depression Endocrine: Endocrine: Denies cold intolerance, Denies flushing, Denies heat intolerance and Denies palpitations Hematologic/Lymphatic: Hematologic/Lymphatic: Denies easy bleeding and Denies easy bruising Allergic/Immunologic: Allergic/Immunologic: Denies wheezing PMFSH Past Medical History Medical History Benign essential HTN Benign microscopic hematuria Had workup through Urology with negative cystoscopy, findings of BPH Calculus of kidney Passed kidney stone Mixed hyperlipidemia Rhinitis Surgical History Surgical History H/O hernia repair Left inguinal hernia repair as a child Hi
--- NOTE | 2022-07-02 16:19 | ECG_ITS ---
Measurements Intervals [place] Rate: 87 P: -48 KS: 111 QRS: -29 QRSD: 150 T: -7 QT: 367 QTc: 444 Interpretive Statements SINUS RHYTHM WITH SHORT [place] INTERVAL POSSIBLE LEFT ATRIAL ENLARGEMENT [-0.1mV P WAVE IN V1/V2] RIGHT BUNDLE BRANCH BLOCK [120+ ms QRS DURATION, UPRIGHT V1, 40+ ms S IN I/aVL/V4/V5/V6] COMPARED TO ECG 07/02/2022 11:27:46 SINUS RHYTHM NOW PRESENT Electronically Signed On 07-02-2022 17:51:31 CDT by Manuel Campbell M.D.
[2022-07-02 17:35] LABS: Alanine Aminotransferase 29 U/L (6-50); Alkaline Phosphatase 83 U/L (38-126); Aspartate Amino Transferase 52 U/L (17-59); Bilirubin,Total 0.7 mg/dL (0.2-1.3)
[2022-07-02] MEDS: NICOTINE (*PBKC) 21 MG PATCH 1 PATCH TRANSDERM (18:26)
[2022-07-02 21:18] LABS: Anion Gap 5 mmol/L (8-16); Blood Urea Nitrogen 19 mg/dL (9-20); Calcium 8.1 mg/dL (8.4-10.2); Carbon Dioxide 27 mmol/L (22-30); Chloride 106 mmol/L (98-107); Estimated CRCL calculation 68 ml/min; Estimated Glomerular Filt Rate > 60; Glucose 90 mg/dL (65-110); Potassium 4.4 mmol/L (3.4-5.0); Sodium 138 mmol/L (137-145)
[2022-07-02] MEDS: CHLORHEXIDINE GLUCONATE 4% SOL 120 ML BTL 1 APPLIC TOPICAL (21:56)
[2022-07-03] VITALS (17 sets, daily range): BP systolic 107–158; BP diastolic 62–91; PULSE 89–107; RESP 18–22; TEMP 36.3–36.8; O2SAT 91–99
--- NOTE | 2022-07-03 | ECHO_ITS ---
Patient Info Name: Regan Sim Age: 66 years : 1955 Gender: Male Ht: 68 in Wt: 174 lbs BSA: 1.96 m2 HR: 100 bpm BP: 130 / 74 mmHg Technical Quality: Fair Exam Date: 07/03/2022 9:55 AM Exam Location: [facility] Pulmonary Exam Room: [facility] Patient Status: Inpatient Admit Date: 07/02/2022 Staff Ordering Physician: Allison Burris NP Imagery Analyst: Teri Savage RDCS Attending Provider: Christian Mcgarry MD Referring Physician: Fatuma SHANKAR; Exam Type: CA echo doppler color flow Study Info Indications - pre op arial enlargement Complete two-dimensional, color flow and Doppler transthoracic echocardiogram is performed. Summary 1. Complete two-dimensional, color flow and Doppler transthoracic echocardiogram is performed. 2. Left ventricular chamber dimension is normal. 3. Left ventricular systolic function is normal, estimated at 60-65%. 4. The left ventricular diastolic function is grade I diastolic dysfunction. 5. E/e' 6 is not elevated. 6. Left atrial chamber dimension is mildly enlarged. 7. There is mild aortic valve sclerosis. 8. There is trace tricuspid valve regurgitation. 9. No pulmonary hypertension, estimated pulmonary arterial systolic pressure is 33 mmHg. Left Ventricle E/e' 6 is not elevated. Left ventricular chamber dimension is normal. Left ventricular systolic function is normal, estimated at 60-65%. The left ventricular diastolic function is grade I diastolic dysfunction. Right Ventricle Right ventricular chamber dimension is normal. Right ventricular systolic function is normal. Left Atria Left atrial chamber dimension is mildly enlarged. Right Atria Right atrial chamber dimension is normal. Aortic Valve The aortic valve is trileaflet. There is mild aortic valve sclerosis. There is no aortic valve stenosis. There is no aortic valve regurgitation. Pulmonic Valve There is no pulmonic regurgitation. Mitral Valve There is no mitral valve stenosis. There is no mitral valve regurgitation. Tricuspid Valve There is trace tricuspid valve regurgitation. No pulmonary hypertension, estimated pulmonary arterial systolic pressure is 33 mmHg. Pericardium/Pleural There is no pericardial effusion. Inferior Vena Cava Normal inferior vena cava with >50% collapse upon inspiration consistent with normal right atrial pressure, 5 mmHg. Aorta The aortic root size at the sinus of Valsalva is normal. Left Ventricular Outflow Tract Name Value Normal LVOT 2D LVOT Diameter 2.0 cm LVOT Doppler LVOT Peak Velocity 139 cm/s LVOT Peak Gradient 8 mmHg LVOT Mean Gradient 4 mmHg LVOT VTI 24 cm LVOT VTI/AV VTI Ratio 0.9 LVOT Stroke Volume 77 ml LVOT CO 19.1 l/min LVOT CI 9.7 l/min/m2 Pulmonic Valve Name Value
[2022-07-03] MEDS: metroNIDAZOLE 500 MG/ISO 100ML 500 MG/100 ML BAG 100 MG IVPB ×3 (01:01→18:01)
[2022-07-03 06:13] LABS: Basophils Absolute Auto 0.1 K/mm3 (0.0-0.1); Basophils Percent Auto 0.3 % (0.2-1.2); Eosinophils Absolute Auto 0.2 K/mm3 (0-0.3); Eosinophils Percent Auto 0.9 % (0-4.4); Hematocrit 43.9 % (42.0-52.0); Hemoglobin 14.5 g/dL (14.0-18.0); Immature Granulocyte Absolute 0.26 K/mm3 (0.00-0.031); Immature Granulocyte Percent A 1.6 % (0-0.5); Lymphocytes Absolute Auto 0.68 K/mm3 (0.9-3.2); Lymphocytes Percent Auto 4.3 % (18.3-44.2); Mean Corpuscular Hemoglobin 30.3 pg (26-34); Mean Corpuscular Volume 91.6 fl (80-100); Mean Platelet Volume 9.5 fl (7.4-10.4); Monocytes Absolute Auto 0.7 K/mm3 (0.1-0.6); Monocytes Percent Auto 4.1 % (2.6-8.5); Neutrophils Absolute Auto 14.2 K/mm3 (1.3-6.7); Neutrophils Percent Auto 88.8 % (45.5-73.1); Platelet Count Result 188 k/mm3 (150-375); Red Blood Count 4.79 M/mm3 (4.6-6.20); Red Cell Distribution Width 14.5 % (11.5-14.5)
[2022-07-03 06:22] LABS: Lactic Acid Reflex 0.9 mmol/L (0.7-2.0)
[2022-07-03 08:53] LABS: Alanine Aminotransferase 36 U/L (6-50); Albumin Level 3.2 g/dL (3.5-5.1); Alkaline Phosphatase 79 U/L (38-126); Anion Gap 9 mmol/L (8-16); Aspartate Amino Transferase 60 U/L (17-59); Bilirubin,Total 0.5 mg/dL (0.2-1.3); Blood Urea Nitrogen 19 mg/dL (9-20); Calcium 8.1 mg/dL (8.4-10.2); Carbon Dioxide 24 mmol/L (22-30); Chloride 107 mmol/L (98-107); Estimated CRCL calculation 68 ml/min; Estimated Glomerular Filt Rate > 60; Glucose 91 mg/dL (65-110); Lipase 38 U/L (23-300); Magnesium 2.2 mg/dL (1.6-2.3); Potassium 3.7 mmol/L (3.4-5.0); Sodium 140 mmol/L (137-145)
--- NOTE | 2022-07-03 09:09 | WPDHPUPDATE1 ---
History and Physical Update Update Date/Time: 07/03/22 09:09 History and Physical has been reviewed, including an updated exam of the patient. There are changes in the patient's condition. Patient's hydration status and electrolytes have improved over the last 24 hours. Potassium is now up to 3.7. Cardiology consultation indicates that patient is a low risk for general anesthesia. Echocardiogram may possibly be done yet this morning prior to planned OR. Results not yet in. I have again discussed everything with the patient and he wishes to proceed at this time. He knows that there is a small chance of needing to have an open cholecystectomy in his situation especially with a white count going up 16,000 while on antibiotics. Risks, benefits, and alternatives have been discussed and questions answered. Patient agrees to proceed with procedure.
[2022-07-03] MEDS: NICOTINE (*PBKC) 21 MG PATCH 1 PATCH TRANSDERM (09:28)
[2022-07-03] MEDS: BISACODYL 10 MG SUPPOSITORY RECTAL (09:28)
[2022-07-03] MEDS: LACTATED RINGERS 1,000 ML 125 ML IV CONT (09:29)
--- NOTE | 2022-07-03 12:00 | PCDIET ---
Pt to Pre op in bed. IV ABT infusing.
[2022-07-03] MEDS: KETOROLAC 15 MG/ML VIAL (*BKC) IV PUSH (12:25)
[2022-07-03] MEDS: CIPROFLOXACIN 400 MG/D5W 200ML 200 ML 200 MG IVPB ×2 (12:25→22:21)
[2022-07-03] MEDS: ACETAMINOPHEN 500 MG TABLET 1000 MG PO ×2 (12:25→22:25)
--- NOTE | 2022-07-03 13:16 | WPDANESEPPF ---
Anes - Initial Pre Proc Eval Procedure: Operation Date: 07/03/22 13:30 Proposed Procedures p Laparoscopic Cholecystectomy; Possible Intraoperative Cholangiogram; Umbilical Hernia Repair - Tomi Kelly MD Date/Time: 07/03/22 13:16 Surgeon: Christian Mcgarry MD Pre Op Diagnosis: ruq abd pain Patient Data Age: 66 Gender: M Height: 1.73 m Weight: 79.3 kg Last Vital Signs Temp 36.8 C 07/03/22 06:00 Pulse 93 07/03/22 08:00 Resp 18 07/03/22 08:00 BP 130/74 07/03/22 06:00 Pulse Ox 95 07/03/22 08:00 O2 Del Method Room Air 07/03/22 08:00 O2 Flow Rate 2 07/02/22 11:26 Allergies Allergy/AdvReac Type Severity Reaction Status Date / Time Penicillins Allergy Unknown Skin Verified 07/02/22 06:56 Reaction Home Medications Medication Instructions Recorded Confirmed Type aspirin 81 mg tablet,delayed 81 mg PO DAILY 10/02/19 07/02/22 History release sildenafil 100 mg tablet See Rx Instructions .Route 09/30/21 07/02/22 Rx .COMPLEX #30 tabs pseudoephedrine HCl 30 mg tablet See Rx Instructions .Route 01/02/22 07/02/22 Rx (Sudogest) .COMPLEX #60 tabs lisinopril 10 1 tablet PO DAILY #90 tabs 01/09/22 07/02/22 Rx mg-hydrochlorothiazide 12.5 mg tablet simvastatin 40 mg tablet See Rx Instructions .Route 04/10/22 07/02/22 Rx .COMPLEX #90 tabs hydrocodone 5 mg-acetaminophen 325 1 tablet PO Q6H PRN pain #14 tabs 07/01/22 07/02/22 Rx mg tablet Laboratory Tests 07/02/22 07/02/22 07/03/22 16:51 20:57 06:01 WBC 16.0 K/mm3 H K/mm3 (4.5-10.0) RBC 4.79 M/mm3 M/mm3 (4.6-6.20) Hgb 14.5 g/dL g/dL (14.0-18.0) Hct 43.9 % % (42.0-52.0) MCV 91.6 fl fl (80-100) MCH 30.3 pg pg (26-34) MCHC 33.0 g/dl g/dl (32-36) RDW 14.5 % % (11.5-14.5) Plt Count 188 k/mm3 k/mm3 (150-375) MPV 9.5 fl fl (7.4-10.4) Immature Gran % (Auto) 1.6 % H % (0-0.5) Neut % (Auto) 88.8 % H % (45.5-73.1) Lymph % (Auto) 4.3 % L % (18.3-44.2) Lake % (Auto) 4.1 % % (2.6-8.5) Eos % (Auto) 0.9 % % (0-4.4) Baso % (Auto) 0.3 % % (0.2-1.2) Lymph # (Auto) 0.68 K/mm3 L K/mm3 (0.9-3.2) Lake # (Auto) 0.7 K/mm3 H K/mm3 (0.1-0.6) Eos # (Auto) 0.2 K/mm3 K/mm3 (0-0.3) Baso # (Auto) 0.1 K/mm3 K/mm3 (0.0-0.1) Abs Immat Gran (auto) 0.26 K/mm3 H K/mm3 (0.00-0.031) Absolute Neuts (auto) 14.2 K/mm3 H K/mm3 (1.3-6.7) Absolute Nucleated RBC 0.0 K/mm3 K/mm3 (0.0-0.012) Nucleated RBC % 0.0 % % (0.0-0.2) Sodium 138 mmol/L mmol/L (137-145) Potassium 4.4 mmol/L mmol/L (3.4-5.0) Chloride 106 mmol/L mmol/L (98-107) Carbon Dioxide 27 mmol/L mmol/L (22-30) Anion Gap 5 mmol/L L mmol/L (8-16) BUN 19 mg/dL mg/dL (9-20) Creatinine 0.90 mg/dL mg/dL (0.7-1.3) Estim Creat Clear Calc 68 ml/min ml/min Estimated GFR > 60 (59 - ) Glucose 90 mg/dL mg/dL (65-110) Lactic Acid Calcium 8.1 mg/dL L mg/dL (8.4-10.2) Phosphorus Magnesium Total Bilirubin 0.7 mg/dL mg/dL (0.2-1.3) Direct Bilirubin 0.0 mg/dL mg/dL (0-0.3) AST 52 U/L U/L (17-59) ALT 29 U/L U/L (6-50) Alkaline Phosphatase 83 U/L U/L (38-126) Total Protein 7.0 g/dL g/dL (6.3-8.2) Albumin 4.0 g/dL g/dL (3.5-5.1) Lipase Blood Type Antibody Screen 07/03/22 07/03/22 07/03/22 06:01 06:01 06:01 WBC RBC Hgb Hct MCV MCH MCHC RDW Plt Count MPV Immature Gran % (Auto) Neut % (Auto) Lym
[2022-07-03] MEDS: BUPIVACAINE/EPINEPHRINE 0.25% 50 ML VIAL 30 ML INFILTRATE (13:35)
--- NOTE | 2022-07-03 13:35 | PM.IMPN ---
Progress Note: A&P Assessment and Plan (1) Cholelithiasis with cholecystitis: Code(s): K80.10 - Calculus of gallbladder with chronic cholecystitis without obstruction Status: Acute Assessment and Plan: -surgery has been consulted and has already seen the patient. -since the patient has an allergy to penicillin he was started on Flagyl and Cipro. -blood cultures are pending. -the patient was febrile with a temperature of 37.8? C. -patient's potassium was low earlier once his potassium is within normal limits then the patient may be cleared for surgery. -I did ask Cardiology to evaluate him to clear him for surgery. However his bundle-branch block is old he had that on his EKGs last year. (2) Tachycardia: Code(s): R00.0 - Tachycardia, unspecified Status: Acute Assessment and Plan: -patient may have been tachycardic due to his fever or discomfort. His heart rate is lower now. -I did order an echo for right atrial enlargement however this appears to be old as well. -I have consulted Cardiology to clear the patient for surgery. (3) Benign essential HTN: Code(s): I10 - Essential (primary) hypertension Status: Chronic Assessment and Plan: -I am holding his p.o. medication and will do p.r.n. hydralazine with parameters. (4) Mixed hyperlipidemia: Code(s): E78.2 - Mixed hyperlipidemia Status: Chronic Assessment and Plan: -I am holding his simvastatin for tonight. (5) Nicotine dependence, unspecified, uncomplicated: Code(s): F17.200 - Nicotine dependence, unspecified, uncomplicated Status: Acute Assessment and Plan: I did offer the patient a nicotine patch in the event that he is wanting to go through with smoking cessation. Subjective Date/time seen: 07/03/22 13:35 Patient was seen during the morning rounds today. Patient denies any chest pain shortness breast. Mild abdominal pain. No vomiting. Review of Systems Review of Systems: All systems reviewed & are unremarkable except as noted in HPI and below Constitutional: Constitutional: Reports as per HPI and Reports no additional constitutional complaints Eyes: Eyes: Reports as per HPI and Reports no additional eye complaints ENT: Reports system reviewed and no additional complaints, except as documented and Reports Normal hearing present Cardiovascular: Cardiovascular: Reports no additional cardiovascular complaints Respiratory: Respiratory: Reports no additional respiratory complaints and Reports no additional respiratory complaints Gastrointestinal: Gastrointestinal: Reports as per HPI and Reports no additional gastrointestinal complaints Musculoskeletal: Musculoskeletal: Reports no additional musculoskeletal complaints Integumentary/Breasts: Skin/Breast: Reports system reviewed and no additional complaints, except as docu and Reports as per HPI Neurologic: Reports system reviewed and no additional complaints, except as documented, Reports as per HPI and Reports Normal hearing present Psychiatric: Psychiatric: Reports no additional psychiatric complaints and Reports as per HPI Endocrine: Endocrine: Reports no additional endocrine complaints Hematologic/Lymphatic: Hematologic/Lymphatic: Reports no additional hematologic/lymphatic complaints Allergic/Immunologic: Allergic/Immunologic: Reports no additional allergic/immunologic complaints Exam Const: General: cooperative, healthy appearing, comfortable, no acute distress, well developed, alert, awake, Physically active, average body habitus and well nourished Nutritional Appearance: average body habitus and well nourished Orientation/consciousness: oriented to person, oriented to place, oriented to time and patient oriented x3 Limitations: no limitations HENMT: Head: normal to inspection, No palpable skull fracture present, normocephalic and atraumatic Ears: hearing grossly normal bilaterally and external ears normal Face/
[2022-07-03] MEDS: LACTATED RINGERS 1,000 ML 30 ML IV CONT ×2 (17:39)
--- NOTE | 2022-07-03 17:46 | W.PM.PROC2 ---
Procedure Note - Detailed Date of Procedure 07/03/22 Pre-op Diagnosis 1. Acute cholecystitis with cholelithiasis 2. Small umbilical hernia with incarcerated omentum Post-op Diagnosis Same Procedure Performed 1. Laparoscopic cholecystectomy with intraoperative cholangiogram 2. Repair of small incarcerated umbilical hernia Surgeon Tomi Kelly MD Emergency Care Attendant Jovon BARCENAS.OR Jigsawyer (relieved by anderson Matta). Anesthesia General Indications Patient has rising white blood cell count with right upper quadrant pain and signs of gallbladder wall thickening and gallstones on ultrasound. 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 By the cholangiogram it appears that cystic duct was coming off the right hepatic duct. No filling defects in the distal common bile duct. Description of Procedure Procedure Details: Patient was seen preoperatively in his hospital room and risks, benefits and alternatives confirmed. Patient was taken to the operating room and general anesthesia was induced. A time out was then preformed with the surgery team confirming patient and site of surgery. The abdomen was prepped and draped in the usual sterile fashion. Incision was made just above the umbilicus. This was also just above the approximately 3 cm umbilical hernia that was present. Decision was made between the skin of the umbilicus and the old scar from his previous laparotomy for perforated appendicitis many years ago. I then carefully dissected the inferior part of the skin of the umbilicus off the hernia sac we then opened the hernia sac and dissected the adhesed omentum away from the line of the hernia sac and found an opening large enough to place the Dumont cannula on the right side of the herniated omental fat. A single stay suture of O- Vicryl was used to elevate the mid-line fascia at the umbilicus as I slid this on in position. peritoneum was entered. The 12 mm Dumont cannula was introduced under direct vision. First under low flow and then under high flow the abdomen was insufflated with carbon dioxide never exceeding a pressure of 15. Two 5 mm trocars were then introduced under direct vision along the costal margin. Initial inspection revealed that the omentum was covering completely the gallbladder. We could see just a little bit of gallbladder when I retracted the omentum and initially a I dissected this down slightly with graspers and it started to come away with intervening inflammatory adhesions. At this point I decided to place a 12 mm port in the epigastrium for use in dissecting this inflamed gallbladder. The following trocars were introduced under direct vision: a 12 mm in the epigastrium and two 5 mm trocars along the right costal margin mentioned above. There were significant adhesions of the omentum to the underside of the gallbladder and these were taken down with blunt and sharp dissection. Bovie cautery was used for hemostasis. The gall bladder was grasped and the cystic duct and artery were dissected free and I carefully identified a window of safety with only two other structures in the area being the cystic duct and the cystic artery. This was quite difficult in this case as the liver was lying more posterior and rotated than usual. 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 (this is seen by a cholangiogram noted below) I then used a 5 mm endo-clip liaison officer to place 2 clips on the patient's side 1 on the gallbladder side on the cystic artery and just 1 clip on the gallbladder side of the cystic duct. A small hole was made in the cystic duct with endoshears very near its junction with the gallbladder and a cholagio-cath introduced. This was held in place with a single 5 mm clip. A cholangiogram
[2022-07-03] MEDS: fentaNYL CITRATE INJ (*CRX) 100 MCG/2 ML VIAL 25 MCG IV PUSH ×6 (17:57→18:23)
--- NOTE | 2022-07-03 18:54 | PC.NURSE ---
Pt back to room from OR post surgery. Inc sites well approximated. Pt resting comfortably. Awake and alert. Spouse at bedside.
[2022-07-03] MEDS: SENNA/DOCUSATE SODIUM TABLET 2 TAB PO (20:35)
[2022-07-03] MEDS: LACTATED RINGERS 1,000 ML 100 ML IV CONT (20:35)
[2022-07-03] MEDS: HYDROcodone/acetaminophen (*CRX) 5-325 MG TABLET 1 TAB PO (20:35)
[2022-07-04] VITALS (9 sets, daily range): BP systolic 125–143; BP diastolic 73–84; PULSE 79–86; RESP 16–18; TEMP 36.3–36.8; O2SAT 95–98
[2022-07-04] MEDS: metroNIDAZOLE 500 MG/ISO 100ML 500 MG/100 ML BAG 100 MG IVPB ×2 (00:58→09:04)
[2022-07-04] MEDS: ACETAMINOPHEN 500 MG TABLET 1000 MG PO (05:48)
[2022-07-04 06:10] LABS: Basophils Percent Auto 0.2 % (0.2-1.2); Hemoglobin 13.5 g/dL (14.0-18.0); Immature Granulocyte Absolute 0.09 K/mm3 (0.00-0.031); Immature Granulocyte Percent A 0.7 % (0-0.5); Lymphocytes Absolute Auto 0.57 K/mm3 (0.9-3.2); Lymphocytes Percent Auto 4.7 % (18.3-44.2); Mean Corpuscular HGB Conc 33.8 g/dl (32-36); Mean Corpuscular Hemoglobin 29.9 pg (26-34); Mean Corpuscular Volume 88.5 fl (80-100); Mean Platelet Volume 9.9 fl (7.4-10.4); Monocytes Percent Auto 8.4 % (2.6-8.5); Neutrophils Absolute Auto 10.4 K/mm3 (1.3-6.7); Platelet Count Result 172 k/mm3 (150-375); Red Blood Count 4.52 M/mm3 (4.6-6.20); Red Cell Distribution Width 14.2 % (11.5-14.5); White Blood Count 12.1 K/mm3 (4.5-10.0)
[2022-07-04 06:32] LABS: Alanine Aminotransferase 44 U/L (6-50); Albumin Level 3.2 g/dL (3.5-5.1); Alkaline Phosphatase 73 U/L (38-126); Anion Gap 9 mmol/L (8-16); Aspartate Amino Transferase 51 U/L (17-59); Bilirubin,Total 0.3 mg/dL (0.2-1.3); Blood Urea Nitrogen 24 mg/dL (9-20); Carbon Dioxide 24 mmol/L (22-30); Chloride 104 mmol/L (98-107); Estimated CRCL calculation 61 ml/min; Estimated Glomerular Filt Rate > 60; Glucose 120 mg/dL (65-110); Sodium 137 mmol/L (137-145)
[2022-07-04] MEDS: NICOTINE (*PBKC) 21 MG PATCH 1 PATCH TRANSDERM (09:01)
[2022-07-04] MEDS: polyethylene glycoL 3350 17 GM POWD.PACK PO (09:02)
--- NOTE | 2022-07-04 10:53 | PM.PNGS ---
Progress Note: A&P Assessment and Plan (1) Cholelithiasis with cholecystitis: Code(s): K80.10 - Calculus of gallbladder with chronic cholecystitis without obstruction Status: Acute Assessment and Plan: Doing well on POD#1 OK to discharge today May stop antibiotics at discharge Keep drain in place until follow up with Dr. Kelly (2) Umbilical hernia without obstruction and without gangrene: Code(s): K42.9 - Umbilical hernia without obstruction or gangrene Status: Acute Subjective Subjective Date/Time Seen: 07/04/22 10:53 Interval history: Doing well today. Tolerating diet. Pain controlled. Exam GI: Inspection: normal to inspection, non-distended, incision (intact with glue) and other (CHUCK serosanguinous) Objective Data Vital Signs Vital Signs: Vital Signs - 24 hr 07/03/22 17:39 07/03/22 17:50 07/03/22 18:05 Temperature 36.3 C L Pulse Rate 98 104 H 107 H Respiratory Rate 20 20 22 H Blood Pressure 115/62 107/91 H 118/85 Pulse Oximetry 98 97 93 Oxygen Delivery Simple Face Mask Simple Face Mask Room Air Oxygen Flow Rate 8 8 07/03/22 18:02 07/03/22 18:20 07/03/22 18:22 Temperature Pulse Rate 102 H Respiratory Rate 22 H Blood Pressure 133/74 Pulse Oximetry 93 91 94 Oxygen Delivery Room Air Room Air Nasal Cannula Oxygen Flow Rate 2 07/03/22 18:35 07/03/22 18:39 07/03/22 18:54 Temperature 36.7 C 36.7 C Pulse Rate 101 H 100 100 Respiratory Rate 22 H 18 18 Blood Pressure 158/74 H 135/82 135/82 Pulse Oximetry 94 97 97 Oxygen Delivery Nasal Cannula Oxygen Flow Rate 2 07/03/22 19:24 07/03/22 20:24 07/03/22 20:00 Temperature 36.7 C 36.6 C Pulse Rate 100 98 Respiratory Rate 18 18 Blood Pressure 130/80 139/83 Pulse Oximetry 99 97 97 Oxygen Delivery Nasal Cannula Oxygen Flow Rate 2 07/03/22 23:52 07/04/22 00:24 07/03/22 20:00 Temperature 36.8 C Pulse Rate 82 102 H Respiratory Rate 18 Blood Pressure 125/73 Pulse Oximetry 96 97 Oxygen Delivery Nasal Cannula Oxygen Flow Rate 1 07/04/22 00:00 07/04/22 04:00 07/04/22 05:05 Temperature Pulse Rate 85 86 Respiratory Rate Blood Pressure Pulse Oximetry 96 Oxygen Delivery Nasal Cannula Oxygen Flow Rate 1 07/04/22 04:24 07/04/22 06:00 07/04/22 04:00 Temperature 36.4 C 36.4 C Pulse Rate 79 79 Respiratory Rate 18 18 Blood Pressure 143/81 H 143/81 H Pulse Oximetry 95 95 95 Oxygen Delivery Room Air Oxygen Flow Rate 07/04/22 08:00 Temperature 36.4 C L Pulse Rate 81 Respiratory Rate 16 Blood Pressure 134/84 Pulse Oximetry 97 Oxygen Delivery Oxygen Flow Rate Intake/Output Intake/Output: Intake & Output 07/01/22 07/02/22 07/03/22 07/04/22 23:59 23:59 23:59 23:59 Intake Total 2270 875 1610 Output Total 180 Balance 2270 875 1430 Meds/Results Medications: Active Medications Generic Name Dose Route Start Last Admin Trade Name Freq PRN Reason Stop Dose Admin Acetaminophen 1,000 mg 07/03/22 20:14 07/04/22 05:48 Acetaminophen 500 Mg Tablet PO 1,000 mg Q6H PRN Administration Mild Pain (1-3) or Fever Hydrocodone Bitart/Acetaminophen 1 tab 07/03/22 18:39 Hydrocodone/Acetaminophen (*Crx) 7.5-325 Mg Tablet PO Q6H PRN Pain Rated 7-10 Hydrocodone Bitart/Acetaminophen 1 tab 07/03/22 20:11 07/03/22 20:35 Hydrocodone/Acetaminophen (*Crx) 5-325 Mg Tablet PO 1 tab Q6H PRN Administration Pain Rated 4-6 Diphenhydramine HCl 25 mg 07/03/22 18:39 Diphenhydramine Hcl Inj 50 Mg/Ml Vial IV PUSH Q6H PRN Itching Enoxaparin Sodium 40 mg 07/04/22 09:00 07/04/22 09:18 Enoxaparin 40 Mg/0.4 Ml Syringe SUB-Q Not Given DAILY RAINA Hydralazine HCl 10 mg 07/02/22 15:31 Hydralazine Hcl 20 Mg/Ml Vial IV PUSH Q8H PRN Blood Pressure - High Metronidazole 500 mg in 100 mls @ 100 mls/hr 07/02/22 18:00 07/04/22 09:04 Flagyl 500 Mg/Iso Soln 100 Ml IV
--- NOTE | 2022-07-04 11:50 | PM.DS ---
DS: Admitting Diagnosis Discharge Date 07/04/2022 Admitting Diagnosis Cholelithiasis /cholecystitis DS: Discharge Diagnosis Discharge Diagnosis (1) Cholelithiasis with cholecystitis: Code(s): K80.10 - Calculus of gallbladder with chronic cholecystitis without obstruction Status: Acute Assessment and Plan: -surgery has been consulted and has already seen the patient. -since the patient has an allergy to penicillin he was started on Flagyl and Cipro. -blood cultures are pending. -the patient was febrile with a temperature of 37.8? C. -patient's potassium was low earlier once his potassium is within normal limits then the patient may be cleared for surgery. -I did ask Cardiology to evaluate him to clear him for surgery. However his bundle-branch block is old he had that on his EKGs last year. (2) Tachycardia: Code(s): R00.0 - Tachycardia, unspecified Status: Acute Assessment and Plan: -patient may have been tachycardic due to his fever or discomfort. His heart rate is lower now. -I did order an echo for right atrial enlargement however this appears to be old as well. -I have consulted Cardiology to clear the patient for surgery. (3) Benign essential HTN: Code(s): I10 - Essential (primary) hypertension Status: Chronic Assessment and Plan: -I am holding his p.o. medication and will do p.r.n. hydralazine with parameters. (4) Mixed hyperlipidemia: Code(s): E78.2 - Mixed hyperlipidemia Status: Chronic Assessment and Plan: -I am holding his simvastatin for tonight. (5) Nicotine dependence, unspecified, uncomplicated: Code(s): F17.200 - Nicotine dependence, unspecified, uncomplicated Status: Acute Assessment and Plan: I did offer the patient a nicotine patch in the event that he is wanting to go through with smoking cessation. DS: Summary Hospital Course Reason for hospitalization: cholelithiasis/cholecystitis Hospital Course: 66 years old male was admitted complained any abdominal pain. Patient was found cholelithiasis and cholecystitis. Patient was given IV antibiotics. Surgery Was consulted and lap cholecystectomy was performed. today patient's pain better. Patient was discharged home in stable condition. Follow-up with surgery seen. Status at Discharge Cognitive/behavioral status at discharge: Stable Time Spent with Patient Time attestation: Total time spent providing and/or coordinating discharge services: Exam Const: General: cooperative, healthy appearing, comfortable, no acute distress, well developed, alert, awake, Physically active, average body habitus and well nourished Nutritional Appearance: average body habitus and well nourished Orientation/consciousness: oriented to person, oriented to place, oriented to time and patient oriented x3 Limitations: no limitations HENMT: Head: normal to inspection, No palpable skull fracture present, normocephalic and atraumatic Ears: hearing grossly normal bilaterally and external ears normal Face/Nose/Sinus: Normal external nose present and Normal nares present Eyes: General: appearance normal, both eyes and all related structures Alignment and Position: alignment normal Periorbital: periorbital findings normal Eyelids: eyelids normal Sclera: sclerae normal Pupils: Equal, round and reactive pupils present EOM: EOMs intact bilaterally Neck: Neck: normal visual inspection, full ROM, no lymphadenopathy, trachea midline and supple Chest: Chest palpation & inspection: normal inspection of the chest Resp: Effort & Inspection: normal respiratory effort Auscultation: clear to auscultation bilaterally Cardio: Palpation: normal PMI Rate: regular rate Rhythm: regular rhythm Heart sounds: S1 normal heart sound present and S2 normal heart sound present Peripheral pulses: Peripheral pulses 2+ throughout Other: 1st EKG was tachycardic with heart rate in the 140s. GI: Inspecti
--- NOTE | 2022-07-04 12:03 | WPDANESPN ---
Anes - Prog Note Post-Op Date/Time: 07/04/22 11:42 Cardiovascular status: normal Respiratory status: normal Airway patency: baseline Mental status: baseline Post-Op hydration status: normal Vital Signs: Last Vital Signs Temp 97.5 F L 07/04/22 08:00 Pulse 81 07/04/22 08:00 Resp 16 07/04/22 08:00 BP 134/84 07/04/22 08:00 Pulse Ox 97 07/04/22 08:00 O2 Del Method Nasal Cannula 07/04/22 05:05 O2 Flow Rate 1 07/04/22 05:05 Pain Score (VAS): 0 I/O: Intake & Output 07/03/22 07/04/22 07/04/22 23:59 07:59 15:59 Intake Total 475 950 660 Output Total 180 Balance 475 770 660 Laboratory Tests 07/04/22 05:52 07/04/22 05:52 07/04/22 07/04/22 05:52 05:52 WBC 12.1 H RBC 4.52 L Hgb 13.5 L Hct 40.0 L MCV 88.5 MCH 29.9 MCHC 33.8 RDW 14.2 Plt Count 172 MPV 9.9 Immature Gran % (Auto) 0.7 H Neut % (Auto) 86.0 H Lymph % (Auto) 4.7 L Bullock % (Auto) 8.4 Eos % (Auto) 0.0 Baso % (Auto) 0.2 Lymph # (Auto) 0.57 L Bullock # (Auto) 1.0 H Eos # (Auto) 0.0 Baso # (Auto) 0.0 Abs Immat Gran (auto) 0.09 H Absolute Neuts (auto) 10.4 H Absolute Nucleated RBC 0.0 Nucleated RBC % 0.0 Sodium 137 Potassium 4.0 Chloride 104 Carbon Dioxide 24 Anion Gap 9 BUN 24 H Creatinine 1.00 Estim Creat Clear Calc 61 Estimated GFR > 60 Glucose 120 H Calcium 8.0 L Total Bilirubin 0.3 AST 51 ALT 44 Alkaline Phosphatase 73 Total Protein 6.0 L Albumin 3.2 L Microbiology 07/02/22 08:10 Blood Blood Culture - Final Escherichia Coli 07/02/22 08:10 Blood Blood Culture - Preliminary Escherichia Coli Post-procedural complaints: none Patient Feedback: Patient satisfied with anesthetic care. awaiting discharge
== END 2022-07-04 13:07 | disposition home or self-care (01) | DRG 418 ==
LOC: ANHED 07:16 → ANH3MEDSUR 12:32
PROVIDERS: Emergency Medicine; Nurse Practitioner; Surgery; Admitting Provider Hospitalist; Emergency Provider Emergency Medicine; PCP Emergency Medicine; Visit Provider Internal Medicine
PROC: 0FT44ZZ Resection of Gallbladder, Percutaneous Endoscopic Approach (ICD-10-PCS; CPT 47562; principal; 2022-07-03 13:30)
DX: K80.12 Calculus of gallbladder with acute and chronic cholecystitis without obstruction (principal); K42.0 Umbilical hernia with obstruction, without gangrene; Q44.5 Other congenital malformations of bile ducts; K82.8 Other specified diseases of gallbladder; E87.6 Hypokalemia; R00.0 Tachycardia, unspecified; E78.2 Mixed hyperlipidemia; F17.210 Nicotine dependence, cigarettes, uncomplicated; R31.1 Benign essential microscopic hematuria; Z20.822 Contact with and (suspected) exposure to COVID-19; Z79.82 Long term (current) use of aspirin; Z79.899 Other long term (current) drug therapy; Z88.0 Allergy status to penicillin; Z90.49 Acquired absence of other specified parts of digestive tract
CPT/HCPCS: 36415; 74300; 76705; 80048; 80053; 80076; 81001; 83605; 83690; 83735; 84100; 85025; 86850; 86900; 86901; 87040; 87077; 87186; 88304; 93005; 93306; 96361; 96365; 96367; 96375; 99285; A9270; C9803; J0131; J0744; J1100; J1170; J1650; J1885; J2250; J2270; J2370; J2405; J2704; J3010; J3480; J7030; J7040; J7120; Q9966; U0003; U0005

== ENCOUNTER 2022-07-06 11:27 | Emergency (ER) | payer MEDICARE, OTHER, SELFPAY ==
--- NOTE | ~2022-07-06 | CT_ITS ---
EXAMINATION: CT abdomen pelvis w con DATE: 07/06/2022 13:45 INDICATION: Upper abdominal pain. TECHNIQUE: Computed tomography (CT) of the abdomen and pelvis was performed with 100 mL Omnipaque 350 intravenous contrast. Automated exposure control and iterative reconstruction technique were employe d. The dose-length product was 607.36 mGy-cm. COMPARISON: CT abdomen and pelvis 07/01/2022 FINDINGS: Again seen is marked elevation of right hemidiaphragm. There is mild atelectasis in the inf erior lungs. No pleural effusion. The heart size is normal. No pericardial effusion. There are change s of recent cholecystectomy. There is a surgical drain in the gallbladder fossa. The spleen, pancreas , and adrenal glands are normal. There are cysts in the kidneys measuring up to 2.7 cm on the right. There are two 4 mm stones in right kidney. There is a 2 mm stone in left kidney. The bladder is diste nded. The prostate is moderately enlarged. There is diverticulosis of the colon without evidence of d iverticulitis. The appendix is not visualized. There are no pathologically enlarged lymph nodes. Ther e is trace ascites in right paracolic gutter. There is a supraumbilical ventral hernia containing fat . There is subcutaneous fat stranding near the umbilicus, consistent with inflammation. There is a to marciano left hip arthroplasty. There is severe thoracic spondylosis and mild lumbar spondylosis. IMPRESSION: 1. Supraumbilical ventral hernia containing fat. 2. Subcutaneous fat stranding near the umbilicus, consistent with inflammation. Reviewed, dictated and finalized at location A.
[2022-07-06 11:42] VITALS: BP 105/71; PULSE 116; RESP 17; TEMP 36.5; O2SAT 96
[2022-07-06 12:42] LABS: Basophils Absolute Auto 0.1 K/mm3 (0.0-0.1); Basophils Percent Auto 0.5 % (0.2-1.2); Eosinophils Absolute Auto 0.2 K/mm3 (0-0.3); Eosinophils Percent Auto 1.4 % (0-4.4); Hematocrit 47.8 % (42.0-52.0); Hemoglobin 16.1 g/dL (14.0-18.0); Immature Granulocyte Absolute 0.15 K/mm3 (0.00-0.031); Immature Granulocyte Percent A 1.4 % (0-0.5); Lymphocytes Absolute Auto 0.73 K/mm3 (0.9-3.2); Lymphocytes Percent Auto 6.9 % (18.3-44.2); Mean Corpuscular HGB Conc 33.7 g/dl (32-36); Mean Corpuscular Hemoglobin 29.9 pg (26-34); Mean Corpuscular Volume 88.8 fl (80-100); Mean Platelet Volume 9.5 fl (7.4-10.4); Monocytes Absolute Auto 1.2 K/mm3 (0.1-0.6); Monocytes Percent Auto 10.9 % (2.6-8.5); Neutrophils Absolute Auto 8.4 K/mm3 (1.3-6.7); Neutrophils Percent Auto 78.9 % (45.5-73.1); Platelet Count Result 237 k/mm3 (150-375); Red Blood Count 5.38 M/mm3 (4.6-6.20); Red Cell Distribution Width 14.4 % (11.5-14.5); White Blood Count 10.7 K/mm3 (4.5-10.0)
[2022-07-06] MEDS: SODIUM CHLORIDE 0.9% IV 1,000 ML 999 ML IV CONT (12:44)
[2022-07-06] MEDS: MORPHINE SULFATE (*CRX) 4 MG/ML INJ 2 MG IV PUSH (12:45)
[2022-07-06 12:52] VITALS: BP 112/83; PULSE 88; RESP 18; O2SAT 99
[2022-07-06 12:54] LABS: Lactic Acid Reflex 0.8 mmol/L (0.7-2.0)
[2022-07-06 12:56] LABS: Alanine Aminotransferase 53 U/L (6-50); Albumin Level 3.8 g/dL (3.5-5.1); Alkaline Phosphatase 82 U/L (38-126); Anion Gap 7 mmol/L (8-16); Aspartate Amino Transferase 39 U/L (17-59); Bilirubin,Total 0.4 mg/dL (0.2-1.3); Blood Urea Nitrogen 15 mg/dL (9-20); Calcium 8.7 mg/dL (8.4-10.2); Carbon Dioxide 26 mmol/L (22-30); Chloride 102 mmol/L (98-107); Estimated CRCL calculation 75 ml/min; Estimated Glomerular Filt Rate > 60; Glucose 151 mg/dL (65-110); Lipase 45 U/L (23-300); Potassium 3.6 mmol/L (3.4-5.0); Sodium 135 mmol/L (137-145)
[2022-07-06 13:12] LABS: Add Urine Microscopic? YES; Appearance Urine Clear (Clear); Bilirubin Urine Negative (Negative); Blood Urine 2+ (Negative); Color Urine Yellow (Yellow); Glucose Urine UA Negative (Negative); Ketones Urine Trace mg/dL (Negative); Leukocyte Esterase Ur Negative LEU/UL (Negative); Mucus Urine Rare /lpf; Nitrate Urine Negative (Negative); Protein Urine Negative (Negative); Specific Grav Ur 1.013 (1.001-1.035); Urobilinogen Urine Negative mg/dL (<2.0); WBC Urine 0-3 /hpf
--- NOTE | 2022-07-06 13:52 | PC.NURSE ---
CHUCK drain to right abdomen due to gall bladder surgery on Wednesday. CHUCK drain drained 70ml output
--- NOTE | 2022-07-06 15:46 | ED.GENADULT ---
HPI - General Adult General Chief complaint: Abdominal Pain Stated complaint: LAP KAL 07/03 DRAIN NOT WORKING PROPERLY Time Seen by Provider: 07/06/22 12:23 Source: RN notes reviewed History of Present Illness HPI narrative: Patient presents emergency department from home for abdominal pain. Patient states he had his gallbladder removed by Dr. Kelly on 03 July states he has a drain in place at that time states that he has been having increased abdominal pain over the past day and noticed decreased drainage from his drain he states at times the drain will not drain at all and the other times of large amount of drainage denies any fevers or chills he denies any nausea vomiting diarrhea or any other symptoms he states that he has been taking hydrocodone for pain at home Related Data Home Medications Medication Instructions Recorded Confirmed aspirin 81 mg tablet,delayed 81 mg PO DAILY 10/02/19 07/02/22 release Allergies Allergy/AdvReac Type Severity Reaction Status Date / Time Penicillins Allergy Unknown Skin Verified 07/06/22 12:26 Reaction Review of Systems Review of Systems: Gen.: Denies fevers or chills ENT: Denies congestion Respiratory: Denies shortness of breath or cough CV: Denies chest pain or palpitations GI: See HPI denies burning, urgency, frequency or hematuria Musculoskeletal: Denies back pain or muscle pain Neuro: Denies numbness, tingling, weakness or focal weakness Skin: Denies rash Except as documented, all other systems reviewed and negative PMFSH Past Medical History Medical History Benign essential HTN Benign microscopic hematuria Had workup through Urology with negative cystoscopy, findings of BPH Calculus of kidney Passed kidney stone Mixed hyperlipidemia Nicotine dependence, unspecified, uncomplicated Rhinitis Surgical History Surgical History H/O hernia repair Left inguinal hernia repair as a child History of appendectomy 1987 - Exploratory laparotomy with appendectomy for rupture appendix History of cystoscopy 2005 for microscopic hematuria - mild BPH but no other significant pathology History of hip replacement History of lobectomy of thyroid 08/2018 - thyroid lobectomy with pathology showing nodularal hyperplasia thyroid History of vasectomy Hx of tonsillectomy Family History Family History Father Family history of Alzheimer's disease, Onset Age: 75 Family history of malignant neoplasm of urinary bladder Mother Family history of lung cancer Other Depression Social History Social History Social History: The patient lives with his . He smokes a pack a cigarettes a day. He drinks maybe 1 beer a day. He is retired from [employer] in [employer]. There has 2 children. He denies any marijuana or illicit drugs. His is his power litigation attorney for healthcare. Code status full code Smoking packs per day: 1 Smoking cigarettes per day: 20.0 Years smoked: 49 Smoking pack-years: 49.00 Smoking status: Current every day smoker Tobacco type: cigarettes Alcohol intake: current Drinks per week: 5 Alcohol use details: beer Substance use: never Spiritual care concerns: No Exam Narrative: APPEARANCE: No acute distress, nontoxic, resting in bed HEENT: Normocephalic, atraumatic, OMM RESPIRATORY: No respiratory distress, clear to auscultation bilaterally with no rhonchi wheezing or rales CARDIOVASCULAR: RRR s murmur ABDOMINAL: Soft nondistended healing surgical wounds with surrounding ecchymosis with no signs of infection mild tenderness in the right upper quadrant right lower quadrant no change left upper quadrant left lower quadrant no rebound or guarding drain in place draining brown fluid consi
== END 2022-07-06 15:50 | disposition home or self-care (01) ==
PROVIDERS: Emergency Provider Emergency Medicine; PCP Emergency Medicine
DX: G89.18 Other acute postprocedural pain (principal); R10.9 Unspecified abdominal pain; I10 Essential (primary) hypertension; Z87.442 Personal history of urinary calculi; E78.2 Mixed hyperlipidemia; Z96.649 Presence of unspecified artificial hip joint; E89.0 Postprocedural hypothyroidism; F17.210 Nicotine dependence, cigarettes, uncomplicated; K43.9 Ventral hernia without obstruction or gangrene
CPT/HCPCS: 36415; 74177; 80053; 81001; 83605; 83690; 85025; 96361; 96374; 99284; J2270; J7030; Q9967

== ENCOUNTER 2024-01-03 10:04 | Outpatient (CLI) | payer MEDICARE, OTHER, SELFPAY ==
[2024-01-03 22:39] LABS: Anion Gap 8 mmol/L (4-12); Blood Urea Nitrogen 23 mg/dL (9-20); Carbon Dioxide 28 mmol/L (22-30); Chloride 106 mmol/L (98-107); Cholesterol 191 mg/dL (0-200); Estimated Glomerular Filt Rate > 60; Glucose 105 mg/dL (65-110); HDL Direct 37 mg/dL; Potassium 4.1 mmol/L (3.4-5.0); Sodium 142 mmol/L (137-145); Triglycerides 151 mg/dL (<150)
[2024-01-03 22:44] LABS: LDL Cholesterol Direct 115 mg/dL
[2024-01-03 22:59] LABS: Hemoglobin A1C 5.1 % (<5.7)
== END 2024-01-03 10:05 | disposition home or self-care (01) ==
LOC: ANHGOSHLAB 10:06
PROVIDERS: PCP Emergency Medicine; Visit Provider Emergency Medicine
DX: E78.2 Mixed hyperlipidemia (principal); I10 Essential (primary) hypertension; Z79.899 Other long term (current) drug therapy; Z12.5 Encounter for screening for malignant neoplasm of prostate; E89.0 Postprocedural hypothyroidism
CPT/HCPCS: 36415; 80048; 80061; 83036; 84153; 84443; G0103

== ENCOUNTER 2024-09-23 08:56 | Emergency (ER) | payer MEDICARE, OTHER, SELFPAY ==
--- NOTE | ~2024-09-23 | XR_ITS ---
EXAMINATION: XR chest 2V DATE: 09/23/2024 09:34 INDICATION: 10 days of cough TECHNIQUE: frontal and lateral views of the chest were obtained. COMPARISON: Chest radiograph dated 06/30/2022 FINDINGS: Chronic mild elevation the right hemidiaphragm. No airspace opacities, pulmonary edema, pleural effus ion or pneumothorax. Heart size is normal. Surgical clips at the base of the neck. IMPRESSION: 1. Chronic elevation the right hemidiaphragm. No acute cardiopulmonary disease. Reviewed, dictated and finalized at location A. ATTACHER
[2024-09-23 09:07] VITALS: BP 143/82; PULSE 82; RESP 18; TEMP 37.1; O2SAT 95
--- NOTE | 2024-09-23 10:39 | ED_ITS ---
HPI - URI/Sore Throat General Chief Complaint: Upper Respiratory Infection Stated Complaint: Chest Congestion/Cough Time Seen by Provider: 09/23/24 09:15 Source: patient Mode of arrival: ambulatory Limitations: no limitations History of Present Illness HPI Narrative: 68 yo M presents with c/o cough, chest congestion for approx. 10 days. Taking OTC meds with no relief of cough. Worse at night. SOB with exertion. Waking up at night and sitting on side of bed to cough. has bruise to upper ABD that he thinks is from hitting himself when coughing. Afebrile. All systems reviewed and negative except as noted above. Related Data Home Medications ?Medication ?Instructions ?Recorded ?Confirmed ?Last Taken ?Type aspirin 81 mg tablet,delayed 81 mg PO DAILY 10/02/19 09/23/24 Unknown History release Allergies Allergy/AdvReac Type Severity Reaction Status Date / Time Penicillins Allergy Unknown Skin Verified 01/03/24 09:29 Reaction Review of Systems Review of Systems: CONSTITUTIONAL: Denies fever, chills, or sweats. EYES: Denies visual changes, redness, or discharge. ENT: Denies rhinorrhea, congestion, sore throat, or otalgia. CARDIOVASCULAR: Denies chest pain, palpitations, or edema. RESPIRATORY: Reports cough, chest congestion and dyspnea with exertion. GASTROINTESTINAL: Denies abdominal pain, nausea, vomiting, or diarrhea. GENITOURINARY: Denies dysuria or hematuria. SKIN: Denies rash or itching. MUSCULOSKELETAL: Denies back pain, joint pain, or myalgia. NEUROLOGIC: Denies headache, numbness, or weakness. PSYCHIATRIC: Denies anxiety or depression. All other systems reviewed are negative, except as documented in HPI. [facility] Past Medical History Medical History (Updated 09/23/24 @ 10:36 by Dee Acosta NP) Cataract fragments in both eyes following surgery Ventral incisional hernia without obstruction or gangrene Benign microscopic hematuria Had workup through Urology with negative cystoscopy, findings of BPH Rhinitis Benign essential HTN Calculus of kidney Passed kidney stone Mixed hyperlipidemia Nicotine dependence, unspecified, uncomplicated Surgical History Surgical History Hx laparoscopic cholecystectomy 07/03/22 H/O umbilical hernia repair 07/03/22 History of lobectomy of thyroid 08/2018 - thyroid lobectomy with pathology showing nodularal hyperplasia thyroid History of cystoscopy 2005 for microscopic hematuria - mild BPH but no other significant pathology H/O hernia repair Left inguinal hernia repair as a child Hx of tonsillectomy History of vasectomy History of appendectomy 1987 - Exploratory laparotomy with appendectomy for rupture appendix History of hip replacement Family History Family History Father Family history of Alzheimer's disease, Onset Age: 75 Family history of malignant neoplasm of urinary bladder Mother Family history of lung cancer Other Depression Social History Social History Social History: The patient lives with his . He smokes a pack a cigarettes a day. He drinks maybe 1 beer a day. He is retired from [employer] in [place]. There has 2 children. He denies any marijuana or illicit drugs. 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 Code status full code Smoking packs per day: 1 Smoking cigarettes per day: 20.0 Years smoked: 49 Smoking pack-years: 49.00 Smoking status: Former smoker (Quit since February 2023. Now smoking cigars.) Tobacco type: cigarettes Alcohol intake: current Drinks per week: 5 Alcohol use details: beer Substance use: never Lack of Transportation: No Lack of Food: Never True Current Housing: I Have Housing Concerned About Future Housing: No Difficulty Paying Gas/Electric Bills: No Difficulty Paying for Meds: No Currently Unemployed: No Education: High School Diploma/GED Difficulty w/ Childcare or Family Care: No Living arrangements: with family Occupation/Education: retired Spiritual care concerns: No Comments At time of signature, agree with nursing past medical, surgical, social and family history. There is no relevant family history pertinent to the presenting complaint. Exam Narrative: GENERAL: This is a well-nourished, well-developed patient, in no apparent distress. HEAD: normocephalic, atraumatic. EYES: PERRL. Sclera clear/white. Vision is grossly intact. EARS: External ears normal, auditory canals clear and without drainage, TMs normal without perforation. Hearing grossly intact. NOSE: External nose normal with no obvious nasal discharge, nares without redness, no rhinorrhea. THROAT: Mucous membranes moist, posterior pharynx clear. NECK: Neck supple, non-tender without lymphadenopathy, masses or thyromegaly. CARDIOVASCULAR: Regular rate and rhythm without murmurs, gallops, or rubs. RESPIRATORY: crackles to left lung, right lung clear. Breath sounds equal bilaterally. No wheezes, rales, or rhonchi. SKIN: warm, Dry, intact with no suspicious lesions or rash, good texture and turgor. Bruising noted to upper abdomen, healing purplish yellow in appearance NEURO: awake, alert, and oriented to person, place and time. There were no obvious focal neurologic abnormalities. EXTREMITIES: No joint tenderness, effusion, or edema noted. Course Course Level of Care: Express Care Visit Vital Signs Vital signs: Vital Signs Temperature 37.1 C 09/23/24 09:07 Pulse Rate 82 09/23/24 09:07 Respiratory Rate 18 09/23/24 09:07 Blood Pressure 143/82 H 09/23/24 09:07 Pulse Oximetry 95 09/23/24 09:07 Temperature 37.1 C 09/23/24 09:07 Pulse Rate 82 09/23/24 09:07 Respiratory Rate 18 09/23/24 09:07 Blood Pressure 143/82 H 09/23/24 09:07 Pulse Oximetry 95 09/23/24 09:07 reviewed MDM - URI/Sore Throat MDM Narrative Medical decision making narrative: patient discharged with antibiotic due to concern for pneumonia, crackles heard on auscultation. A chest x-ray was completed was informed by Radiology Department that radiologist was behind on reading. Will call patient with results. Patient is aware of diagnosis, understands and agrees to treatment plan. Anticipatory guidance given. Patient agrees to follow-up as directed and is aware of reasons to seek care at the emergency department. Portions of this record may have been created with voice recognition software Imaging Data My impression: agree [facility] radiologist Radiologist's impression: EXAMINATION: XR chest 2V DATE: 09/23/2024 09:34 INDICATION: 10 days of cough TECHNIQUE: frontal and lateral views of the chest were obtained. COMPARISON: Chest radiograph dated 06/30/2022 FINDINGS: Chronic mild elevation the right hemidiaphragm. No airspace opacities, pulmonary edema, pleural effusion or pneumothorax. Heart size is normal. Surgical clips at the base of the neck. IMPRESSION: 1. Chronic elevation the right hemidiaphragm. No acute cardiopulmonary disease. Discharge Plan Discharge Clinical Impression: Pneumonia Patient Disposition: Home, Self-Care Condition: Stable Instructions: Antibiotic Form, Pneumonia (ED) Additional Instructions: Take medications as prescribed. Take [id number] Mucinex as directed on packaging. Place cool mist humidifier in bedroom where you sleep. Drink at least 64 oz of water a day. Follow-up with your primary care physician if symptoms are not improving. Patient Language: South African Prescriptions: New doxycycline hyclate 100 mg capsule 100 mg PO BID 7 Days Qty: 14 0RF benzonatate 200 mg capsule 200 mg PO TID PRN (Reason: cough) Qty: 20 0RF methylprednisolone [Medrol (Jonh)] 4 mg tablets,dose pack See Rx Instructions PO .COMPLEX Qty: 21 0RF Rx Instructions: orally per package directions No Action aspirin 81 mg tablet,delayed release (DR/EC) 81 mg PO DAILY pseudoephedrine HCl [Sudogest] 30 mg tablet See Rx Instructions .ROUTE .COMPLEX Qty: 60 3RF Dose Instruction: TAKE ONE TABLET BY MOUTH EVERY 4-6 HOURS NEEDED FOR NASAL CONGESTION Rx Instructions: TAKE ONE TABLET BY MOUTH EVERY 4-6 HOURS NEEDED FOR NASAL CONGESTION sildenafil 100 mg tablet See Rx Instructions .ROUTE .COMPLEX Qty: 30 5RF Dose Instruction: TAKE ONE TABLET BY MOUTH DAILY NEEDED SEXUAL ACTIVITY Rx Instructions: TAKE ONE TABLET BY MOUTH DAILY NEEDED SEXUAL ACTIVITY lisinopril-hydrochlorothiazide 10-12.5 mg tablet 1 tablet PO DAILY Qty: 90 1RF simvastatin 40 mg tablet See Rx Instructions .ROUTE .COMPLEX Qty: 90 1RF Dose Instruction: TAKE ONE TABLET BY MOUTH DAILY Rx Instructions: TAKE ONE TABLET BY MOUTH DAILY Follow-up/Referrals: Mendel Arias MD [Primary Care Provider] - Time of Disposition: 10:37
== END 2024-09-23 10:46 | disposition home or self-care (01) ==
PROVIDERS: Emergency Provider Nurse Practitioner Family; PCP Emergency Medicine
DX: J18.9 Pneumonia, unspecified organism (principal); F17.290 Nicotine dependence, other tobacco product, uncomplicated; I10 Essential (primary) hypertension; E78.2 Mixed hyperlipidemia; Z79.82 Long term (current) use of aspirin
CPT/HCPCS: 71046; 99213; G0463

== ENCOUNTER 2024-12-27 08:39 | Outpatient (CLI) | payer MEDICARE, OTHER, SELFPAY ==
--- NOTE | ~2024-12-27 | CT_ITS ---
CT Scan of the Chest without Contrast: Clinical Indication: Lung cancer screening, nicotine dependence Technique: Contiguous sections were acquired throughout the chest without intravenous contrast. Dose reduction technique was used on this scan by utilizing automated exposure control and iterative recon struction technique. The dose-length product (DLP) was 117.75 mGy-cm. Findings: There is no evidence of any significant mediastinal, hilar or axillary lymphadenopathy. The mediastin al soft tissues appear normal. There is no evidence of pleural or pericardial effusion. There is discoid right basilar atelectasis or scarring. No pulmonary nodule evident. Images through the upper abdomen reveal no abnormalities. Impression: Lung RADS 1: Negative. 12 month follow-up screening CT advised. Reviewed, dictated and finalized at location . Impression: Lung RADS 1: Negative. 12 month follow-up screening CT advised.
== END 2024-12-27 08:40 | disposition home or self-care (01) ==
LOC: MICIMG 08:39
PROVIDERS: PCP Family Medicine; Visit Provider Family Medicine
DX: Z12.2 Encounter for screening for malignant neoplasm of respiratory organs (principal); Z87.891 Personal history of nicotine dependence
CPT/HCPCS: 71271

== ENCOUNTER 2025-06-06 09:00 | Outpatient (CLI) | payer MEDICARE, OTHER, SELFPAY ==
--- NOTE | ~2025-06-06 | XR_ITS ---
Cervical spine Indication: Cervicalgia; CHRONIC NECK PAIN Technique: 3 AP, lateral and dens views obtained. Findings: Moderate loss of vertebral height. No fracture or subluxation. Severe loss of disc height C3-4, C4-5 C5-6, posterior alignment intact. Lung apices are unremarkable. IMPRESSION: Degenerative changes Reviewed, dictated and finalized at location A. IMPRESSION: Degenerative changes
== END 2025-06-06 09:01 | disposition home or self-care (01) ==
LOC: MICIMG 09:02
PROVIDERS: PCP Family Medicine; Visit Provider Family Medicine
DX: M50.30 Other cervical disc degeneration, unspecified cervical region (principal)
CPT/HCPCS: 72040

== ENCOUNTER 2025-06-06 09:48 | Outpatient (CLI) | payer MEDICARE, OTHER, SELFPAY ==
--- OUTSIDE RECORDS SUMMARY | 2025-06-06 10:39 | XMS_ITS ---
Author Organization Unknown ENCOUNTERS Encounter Performer Location Date Diagnosis Diagnosis Status Outpatient [facility] [address] [place] [address] [id number] Outpatient [facility] [address] [place] [address] [id number] [facility] [address] [place] [address] [id number] [facility] Inpatient [facility] [address] [place] [address] [id number] [facility] [address] [place] [address] [id number] Emergency Fletcher Lowe [facility] [address] [place] [address] [id number] Emergency Raheem Farmer [facility] [address] [place] [address] [id number] ASHELY *Note: Encounters from your own facility or health system may be excluded. Allergies, Adverse Reactions, Alerts Allergen Type Severity Identification Date Penicillins drug allergy 3 [id number] Medications Name Date Quantity Days Supplied [facility] Number
[2025-06-06 11:00] LABS: Hematocrit 51.7 % (42.0-52.0); Hemoglobin 16.7 g/dL (14.0-18.0); Immature Granulocyte Percent A 0.4 % (0-0.5); Immature Platelet Fraction Pct 3.2 % (0.9-11.2); Lymphocytes Absolute Auto 1.54 K/mm3 (0.9-3.2); Mean Corpuscular HGB Conc 32.3 g/dl (32-36); Mean Corpuscular Hemoglobin 29.8 pg (26-34); Mean Corpuscular Volume 92.3 fl (80-100); Nucleated Red Blood Cells Absolute Auto 0.000 K/mm3 (0.0-0.012); Nucleated Red Blood Cells Perc 0.0 % (0.0-0.2); Platelet Count Result 236 k/mm3 (150-375); Red Blood Count 5.60 M/mm3 (4.6-6.20); White Blood Count 7.3 K/mm3 (4.5-10.0)
[2025-06-06 12:44] LABS: Alanine Aminotransferase 26 U/L (6-50); Albumin Level 4.3 g/dL (3.5-5.1); Alkaline Phosphatase 83 U/L (38-126); Anion Gap 8 mmol/L (4-12); Aspartate Amino Transferase 29 U/L (17-59); Bilirubin,Total 0.5 mg/dL (0.2-1.3); Blood Urea Nitrogen 22 mg/dL (9-20); Calcium 9.2 mg/dL (8.4-10.2); Carbon Dioxide 28 mmol/L (22-30); Chloride 104 mmol/L (98-107); Estimated Glomerular Filt Rate > 60; Glucose 100 mg/dL (65-110); Potassium 3.9 mmol/L (3.4-5.0); Sodium 140 mmol/L (137-145); Total Protein 7.2 g/dL (6.3-8.2)
[2025-06-06 13:21] LABS: Prostate Specific Antigen 1.0 ng/mL (< OR = 4.0); Thyroid Stimulating Hormone 1.890 uIU/mL (0.465-4.680)
[2025-06-06 13:40] LABS: Vitamin B12 526.0 pg/mL (239-931)
== END 2025-06-06 09:49 | disposition home or self-care (01) ==
PROVIDERS: PCP Family Medicine; Visit Provider Family Medicine
DX: E04.9 Nontoxic goiter, unspecified (principal); Z12.5 Encounter for screening for malignant neoplasm of prostate; Z79.899 Other long term (current) drug therapy; I10 Essential (primary) hypertension; E78.2 Mixed hyperlipidemia; Z00.00 Encounter for general adult medical examination without abnormal findings; M50.30 Other cervical disc degeneration, unspecified cervical region
CPT/HCPCS: 36415; 80053; 82172; 82306; 82607; 84153; 84443; 85025; 85055; G0103